=== PATIENT | female | born 1960 | race Caucasian/White ===

== ENCOUNTER → 2018-08-22 11:48 | Outpatient (CLI) | payer MEDICARE, SELFPAY ==
[2018-08-22 13:19] LABS: Alanine Aminotransferase 17 U/L (12-78); Albumin Level 3.2 gm/dL (3.4-5.0); Albumin/Globulin Ratio 0.8 (1.1-1.8); Alkaline Phosphatase 77 U/L (46-116); Anion Gap 11.5 mEq/L (5-15); Aspartate Amino Transferase 12 U/L (15-37); Bilirubin,Total 0.5 mg/dL (0.2-1.0); Blood Urea Nitrogen 6 mg/dL (7-18); Calcium 8.6 mg/dL (8.5-10.1); Carbon Dioxide 28 mmol/L (21.0-32.0); Chloride 105 mmol/L (98-107); Chol/HDL Ratio 8.5 (1-3.5); Cholesterol 247 mg/dL (140-200); Creatinine,Serum 0.98 mg/dL (0.55-1.02); Estimated Glomerular Filt Rate 58 ml/min (>60); Free T4 (Free Thyroxine) 1.25 ng/dl (0.76-1.46); GFR (African American) 71 ML/MIN (>60); Globulin 3.9 gm/dl (1.3-3.2); Glucose 175 mg/dL (74-106); HDL Cholesterol 29 mg/dL (29-89); LDL Cholesterol 182 mg/dL (0-130); Potassium 3.5 mmoL/L (3.5-5.1); Sodium 141 mmol/L (136-145); Thyroid Stimulating Hormone 1.17 uIU/ml (0.358-3.740); Total Protein,Serum 7.1 gm/dL (6.4-8.2); Triglycerides 179 mg/dL (30-200); VLDL Cholesterol 36 mg/dL (0-40)
[2018-08-24 21:48] LABS: Microalbumin, Urine 6.6 ug/mL (Not Estab.)
== END ==
PROVIDERS: Visit Provider Family Medicine
DX: E11.9 Type 2 diabetes mellitus without complications (principal); E03.9 Hypothyroidism, unspecified
CPT/HCPCS: 36415; 80053; 80061; 82043; 83036; 84439; 84443

== ENCOUNTER → 2018-08-27 08:57 | Outpatient (CLI) | payer MEDICARE, SELFPAY ==
--- NOTE | 2018-08-27 09:04 | XR_ITS ---
XR chest 2V HISTORY: ITS.REASON: COUGH ORDERING PHYSICIAN: Amaya Rodriguez PATIENT AGE: 57 years COMPARISON: None FINDINGS: The cardiomediastinal silhouette and pulmonary vascularity are within normal limits. [The lungs are clear without infiltrates, suspicious nodules, or pleural effusions]. [ ] [No acute bony abnormalities]. IMPRESSION: [Negative chest, no acute finding]
== END ==
PROVIDERS: PCP Nurse Practitioner; Visit Provider Nurse Practitioner
DX: R05 Cough (principal)
CPT/HCPCS: 71046

== ENCOUNTER → 2018-12-02 14:21 | Outpatient (CLI) | payer MEDICARE, SELFPAY ==
--- NOTE | 2018-12-02 14:23 | MM_ITS ---
MM Dig screening mamm BI w/CAD CAD Screening COMPARISON: Digital mammograms with CAD 04/18/2016 and 12/02/2015 INDICATION: There is a history of breast cancer patient's mother and maternal grandmother. TECHNIQUE: Standard CC and MLO images were obtained. R2 CAD reviewed. FINDINGS: Scattered fiber glandular densities are seen throughout both breasts and the findings are bilateral and symmetrical. There is no suspicious lesion and there are no suspicious microcalcifications. There are small nodes in both axilla. There are tiny benign-appearing microcalcifications in each breast. IMPRESSION: Fibrofatty parenchyma with no suspicious lesion seen BI-RADS Category: 2 Benign Finding(s) RECOMMENDED FOLLOW-UP: 1YR - 1 YEAR FOLLOW-UP (A letter has been sent to the patient regarding results of the study.)
== END ==
PROVIDERS: PCP Family Medicine; Visit Provider Family Medicine
DX: Z12.31 Encounter for screening mammogram for malignant neoplasm of breast (principal)
CPT/HCPCS: 77067

== ENCOUNTER → 2019-11-22 10:48 | Outpatient (CLI) | payer MEDICARE, SELFPAY ==
--- NOTE | 2019-11-22 10:57 | XR_ITS ---
PROCEDURE: XR LUMBAR SPINE MIN 4V CLINICAL INDICATION: SCIATICA OF RIGHT SIDE COMPARISON: No exams were available for comparison FINDINGS: There is no acute fracture or dislocation. There is degenerative disc disease at T11-12, L3-4, and to greatest extent at L1-2. No destructive lesion is apparent. Incidental note is made of atherosclerotic calcifications in the abdominal aorta. IMPRESSION: Degenerative disc disease as described. No acute findings. Dictated by: Chong Mujica 11/22/2019 12:00 Electronically signed by Chong Mujica in [facility] 11/22/2019 12:00
== END ==
PROVIDERS: PCP Family Medicine; Visit Provider Family Medicine
DX: M54.31 Sciatica, right side (principal)
CPT/HCPCS: 72110

== ENCOUNTER → 2019-12-02 09:04 | Outpatient (CLI) | payer MEDICARE, SELFPAY ==
--- NOTE | 2019-12-02 | CA_ITS ---
APPROVED REPORT Right Lower Extremity Venous Study for DVT. 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 She states this pain has been ongoing for 3 weeks or more. She describes it as a deep pain with throbbing and tingling. Vein Imaging CFV (R): compressive, spontaneous, phasic, augmentation FEM (R): compressive, spontaneous, phasic, augmentation POP (R): compressive, spontaneous, phasic, augmentation PTV (R): Compressible GSV (R): compressive, spontaneous, phasic, augmentation SSV (R): Compressible Peroneals (R):Compressible GAS (R): Compressible Findings No evidence of DVT or superficial thrombophlebitis in the veins scanned of the right lower extremity. Conclusion No evidence of DVT or superficial thrombophlebitis in the veins scanned of the right lower extremity. Electronically signed by : Melchor Denney MD 12/02/2019 20:18:47
== END ==
PROVIDERS: PCP Family Medicine; Visit Provider Family Medicine
DX: M79.604 Pain in right leg (principal)
CPT/HCPCS: 93971

== ENCOUNTER → 2021-02-11 09:46 | Outpatient (CLI) | payer MEDICARE, SELFPAY ==
--- NOTE | 2021-02-11 09:48 | MM_ITS ---
PROCEDURE INFORMATION: Exam: MG Screening 3D Mammography Exam date and time: 02/11/2021 9:48 AM Age: 60 years old Clinical indication: Encounter for screening mammogram for malignant neoplasm of breast TECHNIQUE: Imaging protocol: Screening tomosynthesis and 2D mammography including computer-aided detection (CAD) when performed. COMPARISON: 1. MG SCBI MM Dig screening mamm BI w/CAD 12/02/2018 2:39 PM 2. MG DMSB DIG MAMM-SCREEN [facility] 04/18/2016 8:26 AM FINDINGS: MAMMOGRAPHY: Breast composition: The breast tissue is composed of scattered areas of fibroglandular density. Mass: None. Architectural distortion: None. Calcifications: No suspicious calcifications. Asymmetric density: None. Skin thickening: None. Axillary adenopathy: None. IMPRESSION: No mammographic evidence of malignancy. Annual screening is recommended unless otherwise clinically indicated. ASSESSMENT: BI-RADS Category 1: Negative
== END ==
PROVIDERS: PCP Family Medicine; Visit Provider Family Medicine
DX: Z12.31 Encounter for screening mammogram for malignant neoplasm of breast (principal)
CPT/HCPCS: 77063; 77067

== ENCOUNTER 2021-02-19 10:45 | Emergency (ER) | payer MEDICARE, SELFPAY ==
[2021-02-19 10:57] VITALS: BP 169/88; PULSE 84; RESP 16; TEMP 36.6; O2SAT 100; BMI 28.3
--- NOTE | 2021-02-19 11:09 | CT_ITS ---
PROCEDURE INFORMATION: Exam: CT Lumbar Spine Without Contrast Exam date and time: 02/19/2021 11:09 AM Age: 60 years old Clinical indication: Low back pain; Additional info: Left sided low back pain that shoots down left leg TECHNIQUE: Imaging protocol: Computed tomography images of the lumbar spine without contrast. Radiation optimization: All CT scans at this facility use at least one of these dose optimization techniques: automated exposure control; mA and/or kV adjustment per patient size (includes targeted exams where dose is matched to clinical indication); or iterative reconstruction. COMPARISON: CR XR LUMBAR SPINE MIN 4V 11/22/2019 11:01 AM FINDINGS: Vertebrae: No acute lumbar spine fracture or traumatic malalignment. Discs/Spinal canal/Neural foramina: Moderate degenerative disc disease at L1-L2 with otherwise mild multilevel degenerative change. There is likely mild spinal canal narrowing at L3-L4 and likely moderate spinal canal narrowing at L4-L5. A large left foraminal zone disc protrusion at L3-L4 result in severe neural foraminal narrowing. Gallbladder and bile ducts: Partially imaged cholecystectomy changes. Exophytic simple left renal cyst. Vasculature: Mild atherosclerosis. Soft tissues: Unremarkable. IMPRESSION: Multilevel lumbar spine degenerative change including likely severe neural foraminal narrowing on the left at L3-L4 and moderate spinal canal narrowing at L4-L5. COMMENTS: Consistent with the [employer]'s Incidental Findings Committee white paper (J Am Jeet Radiol 2018): Any incidental renal lesion less than 1 cm or classified as too small to characterize, or any incidental cystic renal lesion characterized as simple-appearing, is likely benign. No follow-up imaging is recommended for these lesions per consensus recommendations based on imaging criteria.
--- NOTE | 2021-02-19 11:10 | HMH.EDGENADL ---
ED Disposition Clinical Impression: Radicular pain of left upper extremity Disposition: Home, Self-Care Condition on Discharge: Good Additional Instructions: . Use medication as directed Follow-up with primary care physician. You are scheduled for ultrasound for left lower extremity. Sent to the emergency room for any new symptoms. Prescriptions: Etodolac [Lodine 400mg Tab] 400 mg PO TID 10 Days #30 tab Transmission Status: Pending to [facility] Tizanidine HCl [Zanaflex] 2 mg PO BID 10 Days #20 cap Transmission Status: Pending to [facility] Referrals: Lorenzo Sunshine MD [Primary Care Provider] - - Critical Care Critical Care Time: No Attestation: On , the high probability of a clinically significant, sudden or life threatening deterioration of the following system(s) required my full and direct attention, intervention and personal management. The time I documented below is in addition to time spent performing reported procedures but includes the following listed in this critical care notation. Medical Decision Making - Medical Records MR Comment: Patient has radiological finding on the CT scan consistent with spinal stenosis especially at L3-L4 with radicular pain. Any clinical symptoms of DVT. Homans signs is negative. Pain is intermittent's been going for 1 year more consistent with neurogenic radicular pain. - Freedom Inquiry Pt receiving controlled substance: No Freedom was queried for this patient: No Vital Signs: 02/19/21 10:57 Temperature 97.8 F Temperature Source Oral Pulse Rate [Radial] 84 Respiratory Rate 16 Blood Pressure [Right Arm] 169/88 H Blood Pressure Mean [Right Arm] 115 02 Sat by Pulse Oximetry 100 Oxygen Delivery Method Room Air - Lab Data Lab Results 02/19/21 11:19: WBC 6.6, RBC 4.08 L, Hgb 12.2, Hct 34.9 L, MCV 85.5, MCH 30.0, MCHC 35.1, RDW 14.3, Plt Count 223, MPV 9.2, Neut % (Auto) 62.3, Lymph % (Auto) 29.5, [place] % (Auto) 5.8, Eos % (Auto) 1.9, Baso % (Auto) 0.5, Neut # (Auto) 4.1, Lymph # (Auto) 1.9, [place] # (Auto) 0.4, Eos # (Auto) 0.1, Baso # (Auto) 0.0 02/19/21 11:19: Sodium 143, Potassium 4.0, Chloride 111 H, Carbon Dioxide 23, Anion Gap 13.0, BUN 9, Creatinine 0.80, Estimated Creat Clear 91, Estimated GFR 73, Est GFR ( Amer) 89, Glucose 146 H, Calcium 9.6, Total Bilirubin 0.5, AST 31, ALT 14, Alkaline Phosphatase 55, Total Protein 7.5, Albumin 4.1, Globulin 3.4 H, Albumin/Globulin Ratio 1.2 02/19/21 11:19: D-Dimer 0.90 H Result diagrams: 02/19/21 11:19 02/19/21 11:19 General Adult HPI - General Chief complaint: PAIN Stated complaint: left leg pain, no accident Time Seen by Provider: 02/19/21 11:11 Mode of Arrival: Ambulatory Limitations: No Limitations Description of Symptoms (Recalled from ER Triage Doc. by RN): Pt complains of left leg pain starting at thigh to her ankle. Pt states it feels like its knotted in places. Denies any warmth to the touch. - History of Present Illness HPI narrative: Years old female walked to the emergency room complaining of left leg pain that has been going on and off for the past year which she did not seek any medical attention. She said in the past 2 days the pain got worse and affects her walking. She is worried about blood clots so she came to the emergency room. There is no swelling in the left lower extremity. The pain radiates from the pelvic area down to the left thigh front side to the knee. No change in muscle strength or sensation. She is more comfortable when she is lying flat. She never had any history of blood clots. Onset (ago): year(s) Location: lower extremity Severity: moderate Severity scale (1-10): 3 Quality: sharp Consistency: intermittent Relieving factors: immobilization Exacerbating factors: movement - Related Data Home Medications Medication Instructions Recorded Confirmed levothyroxine 88 mcg tablet 88 mcg PO DAILY 11/29/18 02/07/21 metformin 1,000 mg tablet 1
[2021-02-19 11:25] LABS: Basophils % 0.5 % (0.1-2.0); Eosinophils # 0.1 K/mm3 (0.0-0.4); Eosinophils % 1.9 % (0.1-12.0); Hematocrit 34.9 % (37.0-47.0); Hemoglobin 12.2 g/dL (12.2-16.2); Lymphocytes # 1.9 K/mm3 (0.7-4.5); Lymphocytes % 29.5 % (10-50); Mean Corpuscular HGB Conc 35.1 g/dL (31.8-35.4); Mean Corpuscular Volume 85.5 fl (81-99); Mean Platelet Volume 9.2 fl (7.4-10.4); Monocytes # 0.4 K/mm3 (0.1-1.0); Monocytes % 5.8 % (1.7-9.3); Neutrophils # 4.1 K/mm3 (1.8-7.8); Neutrophils % 62.3 % (37.0-80.0); Platelet Count 223 K/mm3 (142-424); Red Blood Count 4.08 M/mm3 (4.20-5.40); Red Cell Distribution Width 14.3 % (11.5-17.5); White Blood Count 6.6 K/mm3 (4.8-10.8)
[2021-02-19 11:29] LABS: Chloride 111 mmol/L (98-107)
[2021-02-19 11:30] LABS: Sodium 143 mmol/L (136-145)
[2021-02-19 11:32] LABS: Alanine Aminotransferase 14 U/L (12-78); Alkaline Phosphatase 55 U/L (38-126); Aspartate Amino Transferase 31 U/L (14-36); Bilirubin,Total 0.5 mg/dl (0.2-1.3); Blood Urea Nitrogen 9 mg/dl (7-17); Creatinine Clearance Estimated 91 mL/min (50-200); Estimated Glomerular Filt Rate 73 ml/min (>60); GFR (African American) 89 ML/MIN (>60)
[2021-02-19 11:33] LABS: Albumin Level 4.1 g/dl (3.5-5.0); Albumin/Globulin Ratio 1.2 (1.1-1.8); Calcium 9.6 mg/dl (8.4-10.2); Carbon Dioxide 23 mmol/L (22.0-30.0); Globulin 3.4 g/dL (1.3-3.2); Glucose 146 mg/dl (74-100); Total Protein,Serum 7.5 g/dl (6.3-8.2)
[2021-02-19 12:39] VITALS: BP 169/88; PULSE 84; RESP 16; TEMP 36.6; O2SAT 99
== END 2021-02-19 12:43 | disposition home or self-care (01) ==
PROVIDERS: Emergency Provider Internal Medicine; PCP Family Medicine
DX: M79.2 Neuralgia and neuritis, unspecified (principal); E11.9 Type 2 diabetes mellitus without complications
CPT/HCPCS: 72131; 80053; 85025; 85378; 99282

== ENCOUNTER → 2021-02-21 14:21 | Outpatient (CLI) | payer MEDICARE, SELFPAY ==
--- NOTE | 2021-02-21 | CA_ITS ---
APPROVED REPORT Left Lower Extremity Venous Study for DVT. 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 Patient denies trauma states she has had left leg pain for several years but the past week the pain has worsened. Vein Imaging CFV (L): compressive, spontaneous, phasic, augmentation FEM (L): compressive, spontaneous, phasic, augmentation, POP (L): compressive, spontaneous, phasic, augmentation PTV (L): Compressible GSV (L): compressive, spontaneous, phasic, augmentation Peroneals (L):Compressible GAS (L): Compressible Findings No evidence of DVT or superficial thrombophlebitis in the veins scanned of the left lower extremity. Conclusion No evidence of DVT or superficial thrombophlebitis in the veins scanned of the left lower extremity. Electronically signed by : Melchor Denney MD 02/21/2021 15:46:59
== END ==
PROVIDERS: PCP Family Medicine; Visit Provider Internal Medicine
DX: M79.662 Pain in left lower leg (principal)
CPT/HCPCS: 93971

== ENCOUNTER 2021-02-27 13:53 | Emergency (ER) | payer MEDICARE, SELFPAY ==
[2021-02-27 14:45] VITALS: BP 151/82; PULSE 85; RESP 19; TEMP 36.9; O2SAT 99; BMI 28.3
--- NOTE | 2021-02-27 15:30 | HMH.EDUTC ---
[facility] [place] Impression: Radicular pain of left lower extremity Disposition: Home, Self-Care Condition on Discharge: Good Instructions: DI for Sciatica, Neuropathic Pain Additional Instructions: *Continue your Etodolac as needed for pain/inflammation *Not additional anti-inflammatory like motrin, aleve, advil with the above amount of ibuprofen. You can still take Tylenol every 4 hours as needed if you need something else for pain *Ice 20 minutes every 2 hours for the first 48 hours after the initial injury followed by moist heat every 20 minutes 3-4 times a day to affected area *Muscle relaxer Tizanidine as prescribed as needed for muscle spasms but remember, it WILL cause drowsiness You cannot take it and drive, operate machinery or care for small children. *Keep this area active, no movement leads to more stiffness, However take it easy and avoid heavy lifting pushing or pulling *Follow up with you family doctor if no improvement for further treatment Follow up with your Family Doctor if no improvement or any worsening of symptoms Straight to ER if any life threatening symptoms Referrals: Lorenzo Sunshine MD [Primary Care Provider] - As needed Time of Disposition: 15:46 Medical Decision Making - Freedom Inquiry Pt receiving controlled substance: No Freedom was queried for this patient: No Vital Signs: 02/27/21 14:45 02/27/21 15:57 Temperature 98.4 F 98.4 F Temperature Source Oral Pulse Rate 85 Pulse Rate [Right Brachial] 85 Respiratory Rate 19 19 Blood Pressure 151/82 H Blood Pressure [Right Arm] 151/82 H Blood Pressure Mean [Right Arm] 105 Blood Pressure Source [Right Arm] Automatic Cuff Blood Pressure Position [Right Arm] Sitting 02 Sat by Pulse Oximetry 99 Oxygen Delivery Method Room Air Orders (Tests/Meds): ED MEDICATIONS Discontinued Medications Generic Name Dose Route Start Last Admin Trade Name Freq PRN Reason Stop Dose Admin Methylprednisolone Sodium Succinate 125 mg 02/27/21 15:38 02/27/21 15:55 Methylprednisolone Sod Succ 125mg Vial IM 02/27/21 15:39 125 mg ONCE ONE Administration Medical Decision Narrative: Discussed with patient that she needed to take the medication as prescribed will give injection of SoluMedrol to see if that would help with the nerve pain and take medication as prescribed by ED physician last week and follow up with PCP if no improvement and patient agreed [facility] [place] - General Stated complaint: pinched nerve seen last sat. Time Seen by Provider: 02/27/21 15:30 Mode of Arrival: Ambulatory Source of Information: Patient Limitations: No Limitations Description of Symptoms (Recalled from Triage Doc. by RN): PATIENT C/O PINCHED NERVE IN LEFT LEG. STATES SHE WAS SEEN IN ER LAST SUNDAY. PAIN IS NOT BETTER HEENT Symptoms (Recalled from RN notes): No Resp Symptoms (Recalled from RN notes): No Skin Symptoms (Recalled from RN notes): No MS Symptoms (Recalled from RN notes): Yes Functional Status (Recalled from RN notes): WNL - History of Present Illness Provider Complaint: Patient states that she has a history of low back pain, sciatica and nerve problems in her back that at times she have nerve pain go down her legs State that she was seen in the ED last week for this same pain and was given Etodolac and Tizanidine but didnt think they was helping so she didnt take them States that she is here today to see if there is something else she can get to help her Denies loss of control of bowel or bladder - Related Data Home Medications Medication Instructions Recorded Confirmed levothyroxine 88 mcg tablet 88 mcg PO DAILY 11/29/18 02/27/21 metformin 1,000 mg tablet 500 mg PO BID 11/29/18 02/27/21 lisinopril 10 mg tablet 10 mg PO DAILY 02/07/21 02/27/21 Etodolac [Lodine 400mg Tab] 400 mg PO TID 02/27/21 02/27/21 Tizanidine HCl [Zanaflex] 2 mg PO BID 02/27/21 02/27/21 Allergies Allergy/AdvReac Type Severity Reaction Status Date / Ti
[2021-02-27 15:57] VITALS: BP 151/82; PULSE 85; RESP 19; TEMP 36.9; O2SAT 99
== END 2021-02-27 16:11 | disposition home or self-care (01) ==
PROVIDERS: Emergency Provider Nurse Practitioner; PCP Family Medicine
DX: M54.10 Radiculopathy, site unspecified (principal); M79.2 Neuralgia and neuritis, unspecified; I10 Essential (primary) hypertension; E11.9 Type 2 diabetes mellitus without complications; E03.9 Hypothyroidism, unspecified; Z79.899 Other long term (current) drug therapy
CPT/HCPCS: G0463; 96372; 99202

== ENCOUNTER → 2021-03-08 13:33 | Outpatient (CLI) | payer MEDICARE, SELFPAY ==
--- NOTE | 2021-03-08 13:36 | MR_ITS ---
PROCEDURE: MR LUMBAR SPINE WO CON CLINICAL INDICATION: ACUTE LEFT SIDED LOW BACK PAIN COMPARISON: No exams were available for comparison TECHNIQUE: Multiplanar, multisequence MRI lumbar spine performed without contrast. FINDINGS: Vertebral body heights are maintained.There is no evidence of bone marrow edema or infiltrative process.The conus medullaris terminates at the T12-L1 vertebral body level. Focal T2 hyperintense and T1 hypointense lesions are noted in the left kidney measuring up to 2.2 centimeters, likely represent cysts. Further details by level follow below T12-L1: No canal stenosis or neural foraminal narrowing. L1-2: Broad-based disc bulge, bilateral facet joint and ligamentum flavum hypertrophy causes mild canal and mild to moderate bilateral foraminal narrowing. L2-3: Small disc bulge, bilateral facet joint and ligamentum flavum hypertrophy causes mild to moderate right canal narrowing. No significant L3-4: Foraminal narrowing. Broad-based disc bulge, bilateral facet joint and ligamentum flavum hypertrophy causes moderate to severe left and mild to moderate right foraminal narrowing. Moderate canal narrowing is noted with crowding of the nerve roots within the thecal sac at this level. L4-5: Broad-based disc bulge, bilateral facet joint and ligamentum flavum hypertrophy with annular tear is noted causes moderate to severe canal narrowing with crowding of the nerve roots within the thecal sac. There is severe bilateral foraminal narrowing. L5-S1: Small disc bulge without significant canal or foraminal narrowing. IMPRESSION: Multilevel degenerative changes, worse at L3-4 and L4-5 levels. Moderate to severe canal and foraminal narrowing at L4-5 level. Dictated by: Lisa Garcia 03/08/2021 15:29 Lisa Garcia in [facility] 03/08/2021 15:29
== END ==
PROVIDERS: PCP Family Medicine; Visit Provider Family Medicine
DX: M54.42 Lumbago with sciatica, left side (principal); M48.061 Spinal stenosis, lumbar region without neurogenic claudication
CPT/HCPCS: 72148; 76376

== ENCOUNTER → 2021-03-14 07:37 | Outpatient (CLI) | payer MEDICARE, SELFPAY | PROVIDERS: Visit Provider Surgery | DX: Z01.812 Encounter for preprocedural laboratory examination (principal); Z20.822 Contact with and (suspected) exposure to COVID-19; Z12.11 Encounter for screening for malignant neoplasm of colon; Z80.0 Family history of malignant neoplasm of digestive organs | CPT/HCPCS: U0003 ==

== ENCOUNTER 2021-03-16 06:20 | Day surgery (SDC) | payer MEDICARE, SELFPAY ==
[2021-03-10 11:58] VITALS: BMI 27.4
[2021-03-16 06:38] VITALS: BP 149/71; PULSE 61; RESP 18; TEMP 36.6; O2SAT 98
[2021-03-16 07:10] LABS: POC Glucose,Bedside 88 (70-110)
[2021-03-16 07:22] VITALS: O2SAT 97
--- NOTE | 2021-03-16 07:35 | P.PN_ITS ---
[facility] Anesthesia Checklist - Patient Identification Patient Identification: Arm Band - Structural Data Admitted From: Home Planned Operative Procedure/s: colonoscopy Consent for Planned Operative Procedure(s) Verified: Yes Verified Documents: Surgical Consent, History and Physical - NPO Status Verified Time NPO: 00:00 - Additional verifications Anesthesia Reactions: No - Airway Assessment C-Spine Mobility Assessed: Yes (mp2) TMJ Mobility Assessed: Yes Dentition: Good Dentition - Neurological Assessment Level of Consciousness: Awake, Alert - Anesthesia Plan Anesthesia Risk discussed: Yes Anesthesia Plan: Verified ASA Class: II Anesthesia Type: MAC [facility] History I have reviewed the patient's past medical history: Yes Medical History: Reports:: Diabetes Mellitus Type 2, Hypertension Denies:: Cancer, Diabetes Mellitus Type 1, Internal Pacemaker, Lung Disease, MRSA, Seizures *Have you ever received a pneumonia vaccine?: Yes *Have you received a flu vaccine this season?: No Other Medical History: Reports: Thyroid Disease Anesthesia experience/problems:: nac Laterality Cases: Right: Arthroscopy Shoulder, Carpal Tunnel Release Other Surgeries: Yes: Cholecystectomy, Colonoscopy, , Tubal Ligation, Other. No: Pacemaker Amputation: No Fractures: No - *Social History Last grade of school completed: High school graduate Smoking Status: Never smoker Alcohol Intake: never Substance Use Type: denies use *Occupational Status:: retired Housing: house Household Members: spouse *Travel in the last 8 weeks: None Family Hx:: Cancer, Diabetes
[2021-03-16 07:47] VITALS: BP 104/62; PULSE 60; RESP 18; TEMP 36.1; O2SAT 93
--- NOTE | 2021-03-16 07:47 | HMH.SCOPE ---
- Procedure: Date: 03/16/21 Patient Date of :: 1960 Procedure Performed:: Total colonoscopy to terminal ileum with biopsy Indications:: Patient is a 60-year-old female with a very strong family history of colon cancer. I had performed colonoscopy on her 2 years ago. Biopsy was performed of a lesion near the appendix but this was benign. Given the very strong family history and due to the fact that this was her initial screening colonoscopy I recommended follow-up colonoscopy within 3 years. Patient is concerned however about waiting much longer. Performing Provider:: Tom Mesa MD Referring Provider:: Wilber Sunshine MD Sedation:: MAC sedation Procedure:: Patient was taken to endoscopy procedure room. She was positioned in lateral decubitus position. Adequate intravenous sedation was achieved. Digital examination was performed which was unremarkable. Variable stiffness Olympus colonoscope was inserted via the anus. It was advanced to the cecum. Ileocecal valve and appendiceal orifice were clearly identified. Colonic visualization was good throughout. Colonoscope was advanced a short distance into the terminal ileum which appeared grossly normal. Colonoscope was withdrawn through the colon with careful surveillance. There were a few diverticuli. In the sigmoid colon there was a subtle possible polyp which was removed with cold biopsy forceps. This is likely hyperplastic or lymphoid aggregate. Within the rectum retroflexion was performed which revealed no evidence of any pathologic internal hemorrhoids. Colonoscope was withdrawn. Findings:: Rare diverticulosis Subtle possible polyp in the sigmoid colon, likely lymphoid aggregate or hyperplastic polyp Recommendations:: Given strong family history repeat colonoscopy 3 to 5 years pending pathology Complications:: None immediately apparent Estimated blood obtained (mL): 1
--- NOTE | 2021-03-16 07:50 | P.HP_ITS ---
HPI HPI: Patient is a 60-year-old female with a very strong family history of colon cancer. I had performed colonoscopy on her 2 years ago. Biopsy was performed of a lesion near the appendix but this was benign. Given the very strong family history and due to the fact that this was her initial screening colonoscopy I recommended follow-up colonoscopy within 3 years. Patient is concerned however about waiting much longer. [facility] History I have reviewed the patient's past medical history: Yes Medical History: Reports:: Diabetes Mellitus Type 2, Hypertension Denies:: Cancer, Diabetes Mellitus Type 1, Internal Pacemaker, Lung Disease, MRSA, Seizures *Have you ever received a pneumonia vaccine?: Yes *Have you received a flu vaccine this season?: No Other Medical History: Reports: Thyroid Disease Anesthesia experience/problems:: nac Laterality Cases: Right: Arthroscopy Shoulder, Carpal Tunnel Release Other Surgeries: Yes: Cholecystectomy, Colonoscopy, , Tubal Ligation, Other. No: Pacemaker Amputation: No Fractures: No - *Social History Last grade of school completed: High school graduate Smoking Status: Never smoker Alcohol Intake: never Substance Use Type: denies use *Occupational Status:: retired Housing: house Household Members: spouse *Travel in the last 8 weeks: None Family Hx:: Cancer, Diabetes Review of Systems - Review of Systems Review of systems:: pertinent systems reviewed and negative unless documented below Meds Home Medications Medication Instructions Recorded Confirmed Type levothyroxine 88 mcg tablet 88 mcg PO DAILY 11/29/18 03/10/21 History metformin 1,000 mg tablet 500 mg PO BID 11/29/18 03/10/21 History lisinopril 10 mg tablet 10 mg PO DAILY 02/07/21 03/10/21 History Gabapentin 300 mg PO BID 03/10/21 03/10/21 History Tramadol HCl [Tramadol 50mg 50 mg PO Q6H PRN 03/10/21 03/10/21 History Tab] Allergies Allergy/AdvReac Type Severity Reaction Status Date / Time codeine Allergy Verified 02/27/21 15:11 Exam Vital signs and Labs for Last 24 Hours: Temp Pulse Resp BP Pulse Ox 97.9 F 61 18 149/71 H 98 03/16/21 06:38 03/16/21 06:38 03/16/21 06:38 03/16/21 06:38 03/16/21 06:38 Laboratory Results - last 24 hr 03/16/21 06:43: POC Glucose 88 - Constitutional no acute distress - *Routine HEENT Exam Head: Present: normocephalic Eye: Present: EOMI, PERRL ENT: Present: mucous membranes moist - *Routine Neck Exam Present: supple. Absent: lymphadenopathy - *Routine Respiratory Exam Present: CTA bilaterally - *Routine Cardiovascular Exam Present: RRR - *Routine Abdominal Exam Present: soft, normoactive bowel sounds. Absent: tenderness - *Routine Rectal Exam Rectal:: deferred - *Routine Genitalia Exam Genitalia:: deferred - *Routine Extremities Exam Absent: cyanosis, clubbing, edema - *Routine Skin Exam Present: warm. Absent: rash - *Routine Neurological Exam Present: alert, oriented X3 Results - Results Lab Results Last 24 Hours:: Laboratory Results - last 24 hr 03/16/21 06:43: POC Glucose 88 Assessment and Plan - Assessment and plan all Dx Assessment and Plan for all prob
[2021-03-16 07:55] VITALS: BP 116/68; PULSE 60; RESP 18; O2SAT 100
[2021-03-16 08:08] VITALS: BP 132/65; PULSE 58; RESP 18; O2SAT 100
== END 2021-03-16 08:10 | disposition home or self-care (01) ==
LOC: OUTP 06:22
PROVIDERS: PCP Family Medicine; Visit Provider Surgery
PROC: 0DJD8ZZ Inspection of Lower Intestinal Tract, Via Natural or Artificial Opening Endoscopic (ICD-10-PCS; principal; 2021-03-16 07:30)
DX: Z80.0 Family history of malignant neoplasm of digestive organs (principal); Z12.11 Encounter for screening for malignant neoplasm of colon; K57.30 Diverticulosis of large intestine without perforation or abscess without bleeding; K63.5 Polyp of colon; E11.9 Type 2 diabetes mellitus without complications; I10 Essential (primary) hypertension; E07.9 Disorder of thyroid, unspecified; Z87.39 Personal history of other diseases of the musculoskeletal system and connective tissue; Z83.3 Family history of diabetes mellitus; Z79.84 Long term (current) use of oral hypoglycemic drugs; Z79.899 Other long term (current) drug therapy
CPT/HCPCS: 45380; 82962; 88305

== ENCOUNTER → 2021-03-21 13:48 | Outpatient (POV) | payer MEDICARE, SELFPAY ==
[2021-03-21 14:13] VITALS: BP 170/79; PULSE 82; RESP 18; O2SAT 100; BMI 27.8
--- NOTE | 2021-03-21 14:43 | HMH.PMCON ---
Assessment and Plan (1) Degenerative disc disease, lumbar Status: Acute Category: Medical Code(s): M51.36 - Other intervertebral disc degeneration, lumbar region (2) Lumbar radiculopathy Status: Acute Category: Medical Code(s): M54.16 - Radiculopathy, lumbar region (3) Ligamentum flavum hypertrophy Status: Acute Category: Medical Code(s): M24.28 - Disorder of ligament, vertebrae - Assessment and plan all Dx Assessment and Plan for all problems:: MRI of the lumbar spine reveals degenerative disc disease, worse at L5 3?L4 and L4-L5. Moderate to severe canal and foraminal narrowing at L4-L5. There is ligamentum flavum hypertrophy noted at L2-L3 and L3-L4 as well as bilateral facet hypertrophy. We will schedule the patient for lumbar epidurogram at L4-L5 for further evaluation. The procedure, risk, benefits were all discussed with the patient today. She would like to proceed with the injection. We did also briefly discuss minimally invasive lumbar decompression. Assuming she would be an appropriate candidate she is welcome to contact the clinic prior to her next appointment date if she has any questions or concerns. Dr. Mary has reviewed this note and agrees with this plan of care. This note was dictated using voice recognition software and make contain errors or omissions. HPI - Data of Consult Patient: new to practice Consult date: 03/28/21 Requesting Physician: Arlene Fuentes APRN Primary Care Provider: Duane Cruz MD - Consult Narrative History of present illness: Ms. George is a 60 year old female who presents today as a new patient. She is a referral from Dr. Cruz for increased pain in the low back. She is rating her pain today a 7 out of 10. She is complaining of increasing low back pain with radiating symptoms into bilateral lower extremities. She describes the pain in the back as a constant aching sensation. She does experience numbness and weakness in her left leg and a heaviness in the right. She also experiences radiating pains into the left buttock and thigh area. The pain is made worse with prolonged standing and walking. Pain is improved with rest. She does get some improvement in symptoms by leaning forward. She has tried conservative therapies in the past such as at home stretches and exercises for greater than 6 weeks, she has also tried oral medications without any lasting relief in symptoms. She has been prescribed muscle relaxers that did not help relieve her pain. Patient is currently prescribed tramadol 50 mg as well as gabapentin 300 mg by her primary care provider. Her Freedom number is [phone] she had an active morphine equivalent of 30. We will obtain admission drug screen today. CC: Arlene Fuentes APRN [facility] History I have reviewed the patient's past medical history: Yes Medical History: Reports:: Diabetes Mellitus Type 2, Hypertension Denies:: Cancer, Diabetes Mellitus Type 1, Internal Pacemaker, Lung Disease, MRSA, Seizures *Have you ever received a pneumonia vaccine?: No *Have you received a flu vaccine this season?: No Other Medical History: Reports: Thyroid Disease Laterality Cases: Right: Arthroscopy Shoulder, Carpal Tunnel Release Other Surgeries: Yes: Cholecystectomy, Colonoscopy, , Tubal Ligation, Other. No: Pacemaker Amputation: No Fractures: No - *Social History Smoking Status: Never smoker Alcohol Intake: never Substance Use Type: denies use *Occupational Status:: unemployed Housing: house Household Members: spouse *Travel in the last 8 weeks: None Family Hx:: Cancer, Diabetes Review of Systems - Review of Systems Review of Systems General: No recent weight changes, no fever, no sleep disturbances Respiratory: No cough, no shortness of air, no recurring pulmonary infections Cardiovascular/peripheral vascular: No chest pain, no palpitations, no edema, no shortness of breath Gastrointestinal: No new onset incontin
== END ==
PROVIDERS: PCP Family Medicine; Visit Provider Family Medicine
DX: M51.16 Intervertebral disc disorders with radiculopathy, lumbar region (principal); M24.28 Disorder of ligament, vertebrae
CPT/HCPCS: 99202; G0463

== ENCOUNTER → 2021-08-27 10:38 | Outpatient (CLI) | payer MEDICARE, SELFPAY ==
[2021-08-27 15:37] LABS: Basophils # 0.1 K/mm3 (0-0.2); Basophils % 1.5 % (0.1-2.0); Eosinophils # 0.1 K/mm3 (0.0-0.4); Eosinophils % 1.7 % (0.1-12.0); Hematocrit 39.3 % (37.0-47.0); Hemoglobin 12.7 g/dL (12.2-16.2); Lymphocytes # 2.9 K/mm3 (0.7-4.5); Lymphocytes % 41.8 % (10-50); Mean Corpuscular HGB Conc 32.4 g/dL (31.8-35.4); Mean Corpuscular Hemoglobin 29.5 pg (27.0-31.2); Mean Corpuscular Volume 91.2 fl (81-99); Mean Platelet Volume 9.8 fl (7.4-10.4); Monocytes # 0.5 K/mm3 (0.1-1.0); Monocytes % 7.2 % (1.7-9.3); Neutrophils # 3.3 K/mm3 (1.8-7.8); Neutrophils % 47.9 % (37.0-80.0); Platelet Count 315 K/mm3 (142-424); Red Blood Count 4.31 M/mm3 (4.20-5.40); Red Cell Distribution Width 13.9 % (11.5-17.5); White Blood Count 6.9 K/mm3 (4.8-10.8)
[2021-08-27 16:46] LABS: Adenovirus,PCR Not Detected (NotDetected); Bordetella Pertussis Not Detected (NotDetected); Chlamydophila Pneumoniae, PCR Not Detected (NotDetected); Coronavirus 19, PCR Not Detected (NotDetected); Coronavirus 229E Not Detected (NotDetected); Coronavirus NL63 Not Detected (NotDetected); Coronavirus OC43 Not Detected (NotDetected); Coronovirus HKU1,PCR Not Detected (NotDetected); Human Metapneumovirus Not Detected (NotDetected); Influenza A, PCR Not Detected (NotDetected); Influenza AH1, 2009 Not Detected (NotDetected); Influenza AH1, PCR Not Detected (NotDetected); Influenza AH3,PCR Not Detected (NotDetected); Influenza B, PCR Not Detected (NotDetected); Mycoplasma Pneumoniae, PCR Not Detected (NotDetected); Parainfluenza 1, PCR Not Detected (NotDetected); Parainfluenza 2, PCR Not Detected (NotDetected); Parainfluenza 3, PCR Not Detected (NotDetected); Parainfluenza 4, PCR Not Detected (NotDetected); Rhinovirus/Enterovirus Not Detected (NotDetected)
[2021-08-27 18:19] LABS: Respiratory Syncytial Virus Detected (NotDetected)
== END ==
PROVIDERS: PCP Family Medicine; Visit Provider Family Medicine
DX: Z20.822 Contact with and (suspected) exposure to COVID-19 (principal); B97.4 Respiratory syncytial virus as the cause of diseases classified elsewhere
CPT/HCPCS: 85025; 87581; 87632; 87798; C9803; U0003; U0005

== ENCOUNTER → 2021-09-13 11:10 | Outpatient (CLI) | payer MEDICARE, SELFPAY ==
--- NOTE | 2021-09-13 11:21 | XR_ITS ---
FINAL REPORT TECHNIQUE: Chest PA & Lateral CLINICAL HISTORY: HEMOPTYSIS FINDINGS: 2 views of the chest were performed. The heart size is normal. The mediastinum is within normal limits. There is no acute cardiopulmonary process. There are no pleural effusions. There is no pneumothorax. The bony thorax appears intact. IMPRESSION: No acute cardiopulmonary process. Reviewed, Interpreted and Dictated by Bong Broussard MD Transcribed by Marti Portillo Authenticated by Bong Broussard MD on 09/13/2021 12:45:47 PM [facility]
[2021-09-13 12:31] LABS: Basophils # 0.1 K/mm3 (0-0.2); Basophils % 0.8 % (0.1-2.0); Eosinophils # 0.1 K/mm3 (0.0-0.4); Eosinophils % 1.6 % (0.1-12.0); Hematocrit 39.9 % (37.0-47.0); Hemoglobin 12.8 g/dL (12.2-16.2); Lymphocytes # 2.4 K/mm3 (0.7-4.5); Lymphocytes % 31.8 % (10-50); Mean Corpuscular HGB Conc 32.2 g/dL (31.8-35.4); Mean Corpuscular Hemoglobin 29.9 pg (27.0-31.2); Mean Corpuscular Volume 93.1 fl (81-99); Mean Platelet Volume 8.2 fl (7.4-10.4); Monocytes # 0.4 K/mm3 (0.1-1.0); Monocytes % 4.6 % (1.7-9.3); Neutrophils # 4.6 K/mm3 (1.8-7.8); Neutrophils % 61.2 % (37.0-80.0); Platelet Count 251 K/mm3 (142-424); Red Blood Count 4.28 M/mm3 (4.20-5.40); Red Cell Distribution Width 14.3 % (11.5-17.5); White Blood Count 7.6 K/mm3 (4.8-10.8)
[2021-09-13 12:39] LABS: Activated Partial Thrombo Time 29.1 seconds (22.8-30.6); INR 1.01 (0.9-1.1); Prothrombin Time 11.4 seconds (10.1-12.5)
[2021-09-13 13:02] LABS: Alanine Aminotransferase 26 U/L (12-78); Albumin Level 4.3 g/dl (3.5-5.0); Albumin/Globulin Ratio 1.3 (1.1-1.8); Alkaline Phosphatase 72 U/L (38-126); Anion Gap 10.8 mEq/L (5-15); Aspartate Amino Transferase 42 U/L (14-36); Bilirubin,Total 0.7 mg/dl (0.2-1.3); Blood Urea Nitrogen 11 mg/dl (7-17); Calcium 9.8 mg/dl (8.4-10.2); Carbon Dioxide 29 mmol/L (22.0-30.0); Chloride 105 mmol/L (98-107); Chol/HDL Ratio 8.1 (1-3.5); Cholesterol 323 mg/dl (140-200); Estimated Glomerular Filt Rate 64 ml/min (>60); GFR (African American) 77 ML/MIN (>60); Globulin 3.3 g/dL (1.3-3.2); Glucose 139 mg/dl (74-100); HDL Cholesterol 40 mg/dl (40-60); Magnesium 1.4 mg/dl (1.6-2.3); Phosphorous 4.5 mg/dl (2.5-4.5); Potassium 3.8 mmoL/L (3.5-5.1); Sodium 141 mmol/L (136-145); Total Protein,Serum 7.6 g/dl (6.3-8.2); Triglycerides 243 mg/dl (30-150); VLDL Cholesterol 49 mg/dL (0-40)
[2021-09-13 13:12] LABS: Direct LDL Cholesterol 244.16 mg/dL (100-129)
[2021-09-13 13:32] LABS: Thyroid Stimulating Hormone 0.23 uIU/mL (0.465-4.68)
[2021-09-13 14:11] LABS: Hemoglobin A1C 6.7 % (4.0-6.0)
== END ==
PROVIDERS: PCP Family Medicine; Visit Provider Family Medicine
DX: R00.2 Palpitations (principal); R04.2 Hemoptysis; I10 Essential (primary) hypertension; E11.9 Type 2 diabetes mellitus without complications; Z79.84 Long term (current) use of oral hypoglycemic drugs
CPT/HCPCS: 36415; 71046; 80053; 80061; 83036; 83735; 84100; 84443; 85025; 85610; 85730

== ENCOUNTER → 2021-09-29 09:38 | Outpatient (CLI) | payer MEDICARE, SELFPAY ==
--- NOTE | 2021-09-29 09:42 | CT_ITS ---
FINAL REPORT CLINICAL HISTORY: HEMOPTYSIS FINDINGS: Axial CT images of the chest were obtained with contrast. Coronal reformatted images were also obtained. This study was performed with techniques to keep radiation doses as low as reasonably achievable, (ALARA). Individualized dose reduction techniques using automated exposure control or adjustment of mA and/or KV according to the patient's size were employed. There is no evidence of mediastinal or hilar mass or adenopathy. No axillary mass or adenopathy is identified. On lung window images, there are calcified granulomas in the left lower lobe. No other pulmonary mass or pulmonary nodule is identified. There is mild atelectasis. No localized pulmonary inflammatory process is identified. Limited images of the upper abdomen reveal post cholecystectomy changes. There is a cystic mass in the posterior left kidney measuring 18 mm which favors a mildly complicated cyst. IMPRESSION: Calcified granulomas in the left lower lobe. Cystic left kidney mass favoring a mildly complicated cyst. Reviewed, Interpreted and Dictated by Tom Benítez III, MD Transcribed by Marti Portillo Authenticated by Tom Benítez III, MD on 09/29/2021 11:41:16 AM [facility]
== END ==
PROVIDERS: PCP Family Medicine; Visit Provider Family Medicine
DX: R04.2 Hemoptysis (principal)
CPT/HCPCS: 71260; Q9967

== ENCOUNTER → 2023-03-12 09:31 | Outpatient (CLI) | payer MEDICARE, SELFPAY ==
--- NOTE | 2023-03-12 09:35 | MM_ITS ---
PROCEDURE INFORMATION: Exam: MG Bilateral Screening 3D Mammography Exam date and time: 03/12/2023 9:26 AM Age: 62 years old Clinical indication: Screening, report left sided diffuse breast discomfort that is off and on, radiates over onto right side, has been going on for months, happens maybe 3-4 times a month. Her mother, maternal grandmother, maternal aunt, and maternal cousin had breast cancer. TECHNIQUE: Imaging protocol: Bilateral Screening tomosynthesis and 2D mammography including computer-aided detection (CAD) when performed. COMPARISON: 1. MG MM DIG SCREENING MAMM BI W/CAD 02/11/2021 9:49 AM 2. MG SCBI MM Dig screening mamm BI w/CAD 12/02/2018 2:39 PM 3. MG DMSB DIG MAMM-SCREEN [place] 04/18/2016 8:26 AM 4. MG DMDBAV DIG MAMM-DX MOIRA W ADD VIEWS 12/02/2015 2:09 PM FINDINGS: MAMMOGRAPHY: Breast composition: There are scattered areas of fibroglandular density. Mass: None. Architectural distortion: None. Calcifications: No suspicious calcifications. Asymmetric density: None. Skin thickening: None. Axillary adenopathy: None. IMPRESSION: See comment Note concern for bilateral breast pain, if focal or clinical concern, sonography can be added. Further evaluation of a painful abnormality should be based on clinical grounds regardless of radiographic findings or lack thereof. No mammographic evidence of malignancy. Annual screening is recommended unless otherwise clinically indicated. ASSESSMENT: BI-RADS Category 1: Negative
== END ==
PROVIDERS: PCP Family Medicine; Visit Provider Family Medicine
DX: Z12.31 Encounter for screening mammogram for malignant neoplasm of breast (principal)
CPT/HCPCS: 77063; 77067

== ENCOUNTER 2023-05-18 06:11 | Day surgery (SDC) | payer MEDICARE, SELFPAY ==
[2023-05-15 13:39] VITALS: BMI 33.3
[2023-05-18 06:40] VITALS: BP 151/77; PULSE 83; RESP 18; TEMP 36.9; O2SAT 93
[2023-05-18 06:54] LABS: POC Glucose,Bedside 175 (70-110)
--- NOTE | 2023-05-18 07:01 | EXP.ANES.CKL ---
[facility] Disclaimer: The information contained in this section may have been updated after the patient was seen, as this information can be updated by other users. Medical History Hx of carpal tunnel syndrome Hyperlipidemia Hypertension Hypothyroidism Surgical History History of bilateral tubal ligation History of cholecystectomy Hx of carpal tunnel repair Hx of shoulder surgery Family History Other Colon cancer Family history of cancer Family history of diabetes mellitus type II Family history of hypothyroidism Social History Smoking Status: Never smoker second hand exposure: No alcohol intake: never substance use type: denies use current occupational status: retired and disabled Travel in the last 8 weeks: Inside the [place] household members: spouse housing: house current occupational exposures/hazards: No caffeine: Yes [facility] Anesthesia Checklist Patient Identification Patient Identification: Arm Band and Verbal (Name & ) Structural Data Admitted From: Home Planned Operative Procedure/s: Colonoscopy Consent for Planned Operative Procedure(s) Verified: Yes NPO Status Verified Time NPO: 00:00 Additional verifications Anesthesia Reactions: No Hx Blood Transfusions: No Blood Transfusion Reaction: No Airway Assessment Mallampati Score:: Class III C-Spine Mobility Assessed: Yes TMJ Mobility Assessed: Yes Dentition: Good Dentition Neurological Assessment Level of Consciousness: Awake Hx Seizures: No Numbness or tingling in extremities: No Anesthesia Plan Anesthesia Risk discussed: Yes Anesthesia Plan: Verified ASA Class: III Anesthesia Type: MAC
[2023-05-18 07:23] VITALS: O2SAT 99
[2023-05-18 07:52] VITALS: BP 82/53; PULSE 76; RESP 18; TEMP 36.2; O2SAT 89
--- NOTE | 2023-05-18 07:52 | P.PCN_ITS ---
Procedure: Date: 05/18/23 Patient Date of :: 1960 Procedure Performed:: Colonoscopy to terminal ileum with polypectomy snare and biopsy forceps Indications:: Patient is a 62-year-old female with somewhat of a family history of colon cancer in her sister and aunt. I had performed colonoscopy on her in 2018 which was unremarkable. Patient wished to pursue repeat colonoscopy which performed in 2020 which revealed no adenomatous polyps but lymphoid aggregate. She was scheduled for repeat colonoscopy. Performing Provider:: Tom Mesa MD Referring Provider:: Duane Cruz Sedation:: MAC sedation Procedure:: Patient history was obtained and appropriate physical examination was performed. Patient's medications and allergies were reviewed. Informed consent was obtained after explaining the benefits, alternatives, and risks of the procedure including, but not limited to, bleeding, perforation, missed lesions, and adverse reaction to anesthesia medications. Patient was transported to endoscopy procedure room. Patient was connected to monitoring devices. Throughout the procedure the patient's blood pressure, pulse, and oxygen saturations were monitored continuously. Patient identifica tion and planned procedure were verified by the staff. Patient was positioned in lateral decubitus position. Digital anorectal exam was performed. Variable stiffness Olympus colonoscope was inserted and advanced under direct visualization to the cecum. Adequacy of the colonic preparation was noted. The colonoscope was advanced a short distance into the terminal ileum. The colonoscope was then slowly withdrawn while carefully examining the color, texture, anatomy, and integrity of the mucosoa circumferentially. Within the rectum retroflexion was performed. Colonoscope was then withdrawn. , Colonic preparation was good. There was a small adenomatous appearing polyp in the ascending colon removed with cold snare. There was possible diminutive polyp in the descending colon removed with biopsy forceps. There was hyperplastic appearing rectosigmoid polyp removed with cold snare. She has some rare diverticulosis. There were internal anal papillae. . Findings:: Polyps as noted above. Ascending colon polyp appeared adenomatous Rare diverticulosis Internal anal papilla/hemorrhoids Recommendations:: Repeat colonoscopy 2 or 3 years Complications:: None Estimated blood obtained (mL): 3 Colonoscopy Component Colonoscopy Component Was a colonoscopy performed during today's procedure?: Yes Recommended follow up colonoscopy of at least 10 years?: No If no, follow up colonoscopy recommended in ___ years?: 2-3 Reason for not recommending >/= 10 yr follow-up interval?: See recommendations Family history and polyp
--- NOTE | 2023-05-18 07:59 | PC.NURSE ---
Pt placed on O2 2L NC. sats increased to 97%
[2023-05-18 08:02] VITALS: BP 97/56; PULSE 72; RESP 18; O2SAT 96
[2023-05-18 08:11] VITALS: BP 111/74; PULSE 71; RESP 18; O2SAT 97
[2023-05-18 08:19] VITALS: BP 125/57; PULSE 84; RESP 18; O2SAT 95
== END 2023-05-18 08:25 | disposition home or self-care (01) ==
PROVIDERS: PCP Family Medicine; Visit Provider Surgery
PROC: 0DJD8ZZ Inspection of Lower Intestinal Tract, Via Natural or Artificial Opening Endoscopic (ICD-10-PCS; CPT 45380; principal; 2023-05-18 07:30)
DX: Z12.11 Encounter for screening for malignant neoplasm of colon (principal); Z86.010 Personal history of colon polyps; Z80.0 Family history of malignant neoplasm of digestive organs; K57.30 Diverticulosis of large intestine without perforation or abscess without bleeding; K64.8 Other hemorrhoids; K63.5 Polyp of colon; E11.9 Type 2 diabetes mellitus without complications
CPT/HCPCS: 45380; 45385; 82962; 88305; J2704

== ENCOUNTER 2023-08-05 10:33 | Emergency (ER) | payer MEDICARE, SELFPAY ==
[2023-08-05] VITALS (9 sets, daily range): BP systolic 94–145; BP diastolic 57–86; PULSE 83–130; RESP 12–31; TEMP 36.6–36.9; O2SAT 94–99; BMI 34.9
--- NOTE | 2023-08-05 10:35 | ECG_ITS ---
APPROVED REPORT Exam: Resting ECG HR:116 bpm ECG Measurements Heart Rate 116 AXES MA 163 P 62 QRSd 82 QRS -18 QT 312 T 37 QTc 381 Conclusion SINUS TACHYCARDIA ABNORMAL RHYTHM ECG UNCONFIRMED REPORT Electronically signed by : Raul Morales MD 08/06/2023 14:45:55
--- NOTE | 2023-08-05 10:40 | XR_ITS ---
PROCEDURE INFORMATION: Exam: XR Chest Exam date and time: 08/05/2023 10:48 AM Age: 62 years old Clinical indication: Cough and shortness of breath; Additional info: Cp/soa, cough TECHNIQUE: Imaging protocol: Radiologic exam of the chest. Views: 2 views. COMPARISON: CT CHEST W CON 09/29/2021 9:54 AM FINDINGS: Lungs: Lung wynne are aerated and clear. No infiltrates or overt CHF. Pleural spaces: Unremarkable. No pleural effusion. No pneumothorax. Heart/Mediastinum: Unremarkable. No cardiomegaly. Bones/joints: Unremarkable for age. IMPRESSION: Negative chest. No active disease.
--- NOTE | 2023-08-05 10:43 | PC.NURSE ---
Dr. Dior at [facility] for pt eval
[2023-08-05 10:44] LABS: Coronavirus 19, PCR Not Detected (NotDetected); Influenza A, PCR Not Detected (NotDetected); Influenza B, PCR Not Detected (NotDetected)
[2023-08-05 10:52] LABS: Basophils # 0.1 K/mm3 (0-0.2); Basophils % 0.7 % (0.1-2.0); Eosinophils # 0.1 K/mm3 (0.0-0.4); Eosinophils % 0.7 % (0.1-12.0); Hematocrit 42.4 % (37.0-47.0); Hemoglobin 14.1 g/dL (12.2-16.2); Lymphocytes # 4.3 K/mm3 (0.7-4.5); Lymphocytes % 40.6 % (10-50); Mean Corpuscular HGB Conc 33.3 g/dL (31.8-35.4); Mean Corpuscular Hemoglobin 29.7 pg (27.0-31.2); Mean Corpuscular Volume 88.9 fl (81-99); Mean Platelet Volume 8.6 fl (7.4-10.4); Monocytes # 0.9 K/mm3 (0.1-1.0); Monocytes % 8.1 % (1.7-9.3); Neutrophils # 5.3 K/mm3 (1.8-7.8); Neutrophils % 49.9 % (37.0-80.0); Platelet Count 211 K/mm3 (142-424); Red Blood Count 4.77 M/mm3 (4.20-5.40); Red Cell Distribution Width 13.1 % (11.5-17.5); White Blood Count 10.6 K/mm3 (4.8-10.8)
--- NOTE | 2023-08-05 10:52 | HMH.EDCP ---
Discharge Plan Disposition Patient Disposition: Home, Self-Care Condition: Good Prescriptions Prescriptions: New benzonatate 200 mg capsule 200 mg PO TID PRN (Reason: cough) Qty: 20 0RF albuterol sulfate 90 mcg/actuation HFA aerosol inhaler 2 inh inhalation Q6H PRN (Reason: shortness of breath or wheezing) Qty: 8.5 0RF No Action metformin 1,000 mg tablet 500 mg PO BID lisinopril 10 mg tablet 10 mg PO DAILY gabapentin 300 MG capsule 300 mg PO BID valsartan 160 mg tablet 160 mg PO DAILY rosuvastatin 20 mg tablet 20 mg PO DAILY levothyroxine 150 mcg tablet 150 mcg PO DAILY Referrals Follow up/Referrals: Duane Cruz MD [Primary Care Provider] - See instructions Activity Restrictions/Add. Instructions Additional Instructions/Restrictions: You were evaluated in the emergency department today. Take Tylenol and ibuprofen at home as needed for pain and fever. Hydrate is much as possible. Use your inhaler at home as needed for wheezing. station superintendent prescription for cough medication and take as needed for cough. Stay orally hydrated. Return to the emergency department for new or worsening symptoms. Clinical Impressions Clinical Impression: Viral URI with cough, Wheezing, Dehydration Instructions Patient Instructions: DI for Viral Upper Respiratory Infection -- Adult Discharge ED Provider: Jess Dior HPI General Chief Complaint: Shortness of Breath/Dyspnea Stated Complaint: CP Time Seen by Provider: 08/05/23 10:35 Mode of Arrival: Family Vehicle Source of Information: Patient and Medical Record Limitations: No Limitations Description of Symptoms (Recalled from ER Triage Doc. by RN): Pt c/o midsternal chest tightness and heart pounding , SOA, fever, sinus & chest congestion, and productive cough. States her symptoms began on , t-max 101.2, and have progressively became worse. Denies any cardiac hx, she does take meds for HTN, HLD, DM, and Hypothyroidism. History of Present Illness HPI narrative: This patient is a 62-year-old female with a history of hypothyroidism, hypertension, hyperlipidemia, and diabetes presenting to the emergency department for evaluation with concern for chest pain, palpitations, cough, congestion, and fevers at home. Patient reports that whenever she gets up and starts moving around, she feels like she cannot catch her breath and feels like her heart is racing. She is concerned that she may be developing pneumonia. She denies any other concerns at this time. She denies any history of cardiopulmonary issues, such as CAD, asthma, COPD, or other concerns. She is a never smoker. Related Data Home Medications Medication Instructions Recorded Confirmed metformin 1,000 mg tablet 500 mg PO BID Diabetes 11/29/18 08/05/23 lisinopril 10 mg tablet 10 mg PO DAILY Hypertension 02/07/21 08/05/23 gabapentin 300 mg capsule 300 mg PO BID Pain 03/10/21 08/05/23 rosuvastatin 20 mg tablet 20 mg PO DAILY Cholesterol 05/15/23 08/05/23 valsartan 160 mg tablet 160 mg PO DAILY htn 05/15/23 08/05/23 levothyroxine 150 mcg tablet 150 mcg PO DAILY 08/05/23 08/05/23 Previous Rx's Medication Instructions Recorded albuterol sulfate 90 mcg/actuation 2 inh inhalation Q6H PRN shortness 08/05/23 aerosol inhaler of breath or wheezing #8.5 grams benzonatate 200 mg capsule 200 mg PO TID PRN cough #20 caps 08/05/23 Allergies Allergy/AdvReac Type Severity Reaction Status Date / Time codeine Allergy Verified 06/07/23 10:36 [facility] Disclaimer: The information contained in this section may have been updated after the patient was seen, as this information can be updated by other users. Medical History Hx of carpal tunnel syndrome Hyperlipidemia Hypertension Hypothyroidism Surgical History History of bilateral tubal ligation History of ch
[2023-08-05 10:53] LABS: Chloride 108 mmol/L (98-107); Potassium 3.7 mmoL/L (3.5-5.1); Sodium 140 mmol/L (136-145)
[2023-08-05 10:55] LABS: Blood Urea Nitrogen 21 mg/dl (7-17); Creatinine Clearance Estimated 80 mL/min (50-200); Estimated Glomerular Filt Rate 50 ml/min (>60); GFR (African American) 61 ML/MIN (>60)
[2023-08-05 10:56] LABS: Alanine Aminotransferase 32 U/L (12-78); Albumin Level 4.3 g/dl (3.5-5.0); Albumin/Globulin Ratio 1.2 (1.1-1.8); Alkaline Phosphatase 88 U/L (38-126); Anion Gap 16.7 mEq/L (5-15); Aspartate Amino Transferase 36 U/L (14-36); Bilirubin,Total 0.8 mg/dl (0.2-1.3); Calcium 9.3 mg/dl (8.4-10.2); Carbon Dioxide 19 mmol/L (22.0-30.0); Globulin 3.5 g/dL (1.3-3.2); Glucose 176 mg/dl (74-100); Total Protein,Serum 7.8 g/dl (6.3-8.2)
[2023-08-05 11:06] LABS: NT Pro Brain Natriuretic Pep. 105 pg/mL (0-125)
[2023-08-05 11:13] LABS: T4 (Thyroxine) 13.5 ug/dl (5.53-11.0)
--- NOTE | 2023-08-05 11:16 | PC.NURSE ---
RESP CALLED FOR DUO NEB
--- NOTE | 2023-08-05 11:23 | PC.NURSE ---
Pt provided with ice chips
--- NOTE | 2023-08-05 11:27 | PC.NURSE ---
RT at [facility] to administer breathing treatment
[2023-08-05 11:28] LABS: Thyroid Stimulating Hormone < 0.02 uIU/mL (0.465-4.68)
[2023-08-05 11:33] LABS: Troponin I < 0.01 ng/ml (0.00-0.034)
[2023-08-05 11:37] LABS: Lactic Acid 1.5 mmol/L (0.7-2.1)
[2023-08-05 11:42] LABS: D-Dimer 1.34 ug/mL (0.0-0.5)
--- NOTE | 2023-08-05 11:52 | CT_ITS ---
PROCEDURE INFORMATION: Exam: CTA Chest With Contrast Exam date and time: 08/05/2023 12:18 PM Age: 62 years old Clinical indication: Shortness of breath; Additional info: Cp/soa, elevated dimer TECHNIQUE: Imaging protocol: Computed tomographic angiography of the chest with contrast. Exam focused on the arteries. 3D rendering (Not supervised by radiologist): MIP and/or 3D reconstructed images were created by the technologist. Radiation optimization: All CT scans at this facility use at least one of these dose optimization techniques: automated exposure control; mA and/or kV adjustment per patient size (includes targeted exams where dose is matched to clinical indication); or iterative reconstruction. Contrast material: ISOVUE 370; Contrast volume: 70 ml; Contrast route: INTRAVENOUS (IV); REPORTING DATA: Count of CT and Cardiac NM exams in prior 12 months: This patient has received 0 known CTs and 0 known cardiac nuclear medicine studies in the 12 months prior to the current study. COMPARISON: CT CHEST W CON 09/29/2021 9:54 AM FINDINGS: Pulmonary arteries: Pulmonary vasculature is adequately opacified without filling defects or other evidence of acute pulmonary embolism. Aorta: Unremarkable. No aortic aneurysm. No aortic dissection. Lungs: . Stable small calcified nodules left mid lung zone, granulomatous in nature. Lung wynne are otherwise aerated and clear. Pleural spaces: Unremarkable. No pneumothorax. No pleural effusion. Heart: Heart is not significantly enlarged. No significant coronary artery calcifications. No significant pericardial effusion. Mediastinal space: Chronic granulomatous calcifications within the mediastinum and left hilum, stable. Lymph nodes: Unremarkable. No enlarged lymph nodes. Gallbladder and bile ducts: Gallbladder has been removed. Bile ducts are not appreciably dilated. Spleen: Few chronic granulomatous calcifications within the liver and spleen unchanged. Kidneys and ureters: Stable benign-appearing left renal cyst. Bones/joints: Unremarkable. No acute fracture. Soft tissues: Unremarkable. IMPRESSION: Negative CT angiogram of the chest. No evidence of acute pulmonary embolism.
[2023-08-05 11:55] LABS: Procalcitonin 0.103 ng/mL (0.0-2.0)
--- NOTE | 2023-08-05 12:25 | PC.NURSE ---
LAB CALLED TO DRAW A 2 HR TROP
[2023-08-05 13:13] LABS: Troponin I < 0.01 ng/ml (0.00-0.034)
== END 2023-08-05 13:47 | disposition home or self-care (01) ==
PROVIDERS: Emergency Provider Emergency Medicine; PCP Family Medicine
DX: R07.9 Chest pain, unspecified (principal); J06.9 Acute upper respiratory infection, unspecified; R06.2 Wheezing; E86.0 Dehydration; E03.9 Hypothyroidism, unspecified; I10 Essential (primary) hypertension; R00.0 Tachycardia, unspecified; E78.5 Hyperlipidemia, unspecified; E11.9 Type 2 diabetes mellitus without complications
CPT/HCPCS: 36415; 71046; 71275; 80053; 83605; 83880; 84145; 84436; 84443; 84484; 85025; 85378; 87636; 93005; 96361; 96374; 96375; 99285; J0131; Q9967

== ENCOUNTER 2023-09-18 13:21 | Emergency (ER) | payer MEDICARE, SELFPAY ==
[2023-09-18 14:30] VITALS: BP 176/88; PULSE 110; RESP 21; TEMP 37.1; O2SAT 95; BMI 29.7
--- NOTE | 2023-09-18 14:44 | ED_ITS ---
Discharge Plan Disposition Patient Disposition: Home, Self-Care Condition: Good Prescriptions Prescriptions: No Action metformin 1,000 mg tablet 500 mg PO BID lisinopril 10 mg tablet 10 mg PO DAILY gabapentin 300 MG capsule 300 mg PO BID valsartan 160 mg tablet 160 mg PO DAILY rosuvastatin 20 mg tablet 20 mg PO DAILY levothyroxine 150 mcg tablet 150 mcg PO DAILY benzonatate 200 mg capsule 200 mg PO TID PRN (Reason: cough) Qty: 20 0RF albuterol sulfate 90 mcg/actuation HFA aerosol inhaler 2 inh inhalation Q6H PRN (Reason: shortness of breath or wheezing) Qty: 8.5 0RF Referrals Follow up/Referrals: Duane Cruz MD [Primary Care Provider] - See instructions Activity Restrictions/Add. Instructions Additional Instructions/Restrictions: *Monitor Temp, Over the counter Motrin or Tylenol as directed/as needed Tylenol every 4 hours and Motrin every 6 hours (as long as your family doctor has told you that you can take it) for fever or pain. and straight to ER if unable to lower temp less than 101.0 after medication given *Warm salt water gargles may help to soothe the throat *Throat Lozenges? *Warm fluids like tea with honey may help to soothe the throat? *Sleep elevated *Humidifier/Vaporizer Follow up IMMEDIATELY for new or worsening symptoms or no Noticeable improvement over the next 48-72 hours. 911 for difficulty breathing or swallowing You were tested for today for Upper Respiratory Panel with COVID19 your test re sult should be back in the next 24hours, you may check your results on the [facility] My Health Portal if your COVID or Influenza is positive you must Quarantine for 5 days Clinical Impressions Clinical Impression: Exposure to COVID-19 virus Instructions Patient Instructions: DI for Viral Syndrome Discharge ED Provider: Christy Ahumada [facility] HPI General Stated complaint: covid tested Mode of Arrival: Ambulatory Source of Information: Patient Limitations: No Limitations Time Seen by Provider: 09/18/23 14:45 Description of Symptoms (Recalled from Triage Doc. by RN): PATIENT STATES SHE BEGAN HAVING CHILLS AND BODY ACHES LAST NIGHT AND TESTED POSITIVE FOR COVID AT HOME. NEEDING A COVID TEST HEENT Symptoms (Recalled from RN notes): No Resp Symptoms (Recalled from RN notes): No Skin Symptoms (Recalled from RN notes): No MS Symptoms (Recalled from RN notes): No Functional Status (Recalled from RN notes): WNL History of Present Illness Provider Complaint: Patient states that she was around her sister all weekend that tested positive for COVID today States that she started having chills, body aches, and nasal congestion last night and took a home COVID test and it was positive so she came in requesting a home COVID test Related Data Home Medications Medication Instructions Recorded Confirmed metformin 1,000 mg tablet 500 mg PO BID Diabetes 11/29/18 08/05/23 lisinopril 10 mg tablet 10 mg PO DAILY Hypertension 02/07/21 08/05/23 gabapentin 300 mg capsule 300 mg PO BID Pain 03/10/21 08/05/23 rosuvastatin 20 mg tablet 20 mg PO DAILY Cholesterol 05/15/23 08/05/23 valsartan 160 mg tablet 160 mg PO DAILY htn 05/15/23 08/05/23 levothyroxine 150 mcg tablet 150 mcg PO DAILY 08/05/23 08/05/23 Previous Rx's Medication Instructions Recorded albuterol sulfate 90 mcg/actuation 2 inh inhalation Q6H PRN shortness 08/05/23 aerosol inhaler of breath or wheezing #8.5 grams benzonatate 200 mg capsule 200 mg PO TID PRN cough #20 caps 08/05/23 Allergies Allergy/AdvReac Type Severity Reaction Status Date / Time codeine Allergy Verified 06/07/23 10:36 Worker's Comp Is this a Worker's Comp case?: No [facility] Disclaimer: The information contained in this section may have been updated after the patient was seen, as this information can be updated by other users. Medical History Hx of carpal tunnel syndrome Hyperlipidemia Hypertension Hypothyroidism Surgical History History of bilateral tubal ligation History of cholecystectomy History of colonoscopy Hx of carpal tunnel repair Hx of shoulder surgery Family History Other Colon cancer Family history of cancer Family history of diabetes mellitus type II Family history of hypothyroidism Social History Smoking Status: Never smoker second hand exposure: No alcohol intake: never substance use type: denies use current occupational status: retired and disabled Travel in the last 8 weeks: Inside the [place] household members: spouse housing: house current occupational exposures/hazards: No caffeine: Yes ROS Obtained: Yes All systems reviewed & no additional complaints except as documented and Yes Systems reviewed as appropriate & no additional complaints except as documented Constitutional Constitutional: Reports system reviewed and no additional complaints, except as documented, Reports as per HPI, Reports body ache, Reports chills and Reports fever(s) ENT Ears, Nose, Mouth, and Throat: Reports system reviewed and no additional co mplaints, except as documented, Reports as per HPI and Reports nasal congestion Cardiovascular Cardiovascular: Reports system reviewed and no additional complaints, except as documented and Reports as per HPI Respiratory Respiratory: Reports system reviewed and no additional complaints, except as documented, Reports as per HPI, Denies shortness of breath and Denies chest congestion Gastrointestinal Gastrointestingal: Reports system reviewed and no additional complaints, except as documented and as per HPI Physical Exam General General appearance: alert and in no apparent distress ENT ENT exam: Present mucous membranes moist Respiratory Respiratory exam: Present normal lung sounds bilaterally; Absent respiratory distress or wheezes Cardiovascular Cardiovascular exam: Present regular rate, normal rhythm and normal heart sounds Neurological Exam Neurological exam: Present alert, oriented X3 and normal gait Medical Decision Making Freedom Inquiry Pt receiving controlled substance: No Freedom was queried for this patient: No Vital Signs: 09/18/23 14:30 Temperature 98.7 F Temperature Source Oral Pulse Rate [Left Brachial] 110 H Respiratory Rate 21 Blood Pressure [Left Arm] 176/88 H Blood Pressure Mean [Left Arm] 117 Blood Pressure Source [Left Arm] Automatic Cuff Blood Pressure Position [Left Arm] Sitting 02 Sat by Pulse Oximetry 95 Oxygen Delivery Method Room Air Orders (Tests/Meds): ORDERS Category Date Time Status Full Resp Panel w/COVID ([facility]) Routine Lab 09/18/23 14:36 Ordered
[2023-09-18 14:50] VITALS: BP 176/88; PULSE 110; RESP 21; TEMP 37.1; O2SAT 95
[2023-09-18 15:03] LABS: Adenovirus,PCR Not Detected (NotDetected); Coronavirus 229E Not Detected (NotDetected); Coronavirus NL63 Not Detected (NotDetected); Coronavirus OC43 Not Detected (NotDetected); Coronovirus HKU1,PCR Not Detected (NotDetected); Human Metapneumovirus Not Detected (NotDetected); Influenza A, PCR Not Detected (NotDetected); Influenza AH1, 2009 Not Detected (NotDetected); Influenza AH1, PCR Not Detected (NotDetected); Influenza AH3,PCR Not Detected (NotDetected); Influenza B, PCR Not Detected (NotDetected); Parainfluenza 1, PCR Not Detected (NotDetected); Parainfluenza 2, PCR Not Detected (NotDetected); Parainfluenza 3, PCR Not Detected (NotDetected); Parainfluenza 4, PCR Not Detected (NotDetected); Respiratory Syncytial Virus Not Detected (NotDetected); Rhinovirus/Enterovirus Not Detected (NotDetected)
[2023-09-18 16:30] LABS: Coronavirus 19, PCR Detected (NotDetected)
== END 2023-09-18 14:53 | disposition home or self-care (01) ==
PROVIDERS: Emergency Provider Nurse Practitioner; PCP Family Medicine
DX: U07.1 COVID-19 (principal); R50.9 Fever, unspecified; R09.81 Nasal congestion; R09.89 Other specified symptoms and signs involving the circulatory and respiratory systems; M79.18 Myalgia, other site; E78.5 Hyperlipidemia, unspecified; E03.9 Hypothyroidism, unspecified; I10 Essential (primary) hypertension
CPT/HCPCS: 87632; 87635; 99212; 99214; G0463

== ENCOUNTER 2025-06-19 10:07 | Outpatient (CLI) | payer MEDICARE, SELFPAY ==
--- OUTSIDE RECORDS SUMMARY | 2024-03-03 04:45 | XMS_ITS ---
[facility] [place] Address [address] [facility] [address] [place] [id number] Care Team Providers Care Refractory Technician Name Role Phone AnthonyRomeoDuane Primary Care Provider [place] Sunshine Unavailable [phone] Results Component Value Reference Range Notes P-T4 Free (thyroxine) Reviewed date:03/04/2024 08:25:14 AM Interpretation:Normal Performing Lab: Notes/Report: Test performed by [facility] [address] [place], [place] [address] [place] , [address], [place] [address] Linden Weller MD, Bulk Tank Driver CLIA: [id number] Thyroxine Free (free T4) 1.14 0.86-1.76 ng/dL P-TSH Reviewed date:03/04/2024 08:25:14 AM Interpretation: Performing Lab: Notes/Report: Test Cancelled Test Cancelled Test Cancel led P-TSH reflex to FT4 Reviewed date:03/04/2024 08:25:14 AM Interpretation:<0.005 Performing Lab: Notes/Report: Test performed by [facility] [address] [place], [place] [address] , [address], [place] [address] Linden Weller MD, Bulk Tank Driver CLIA: [id number] TSH reflex to FT4 <0.005 0.43-5.25 mU/L REASON FOR VISIT blood work Medications Medication SIG (Take, Route, Frequency, Duration) Notes Start Date End Date Status Gabapentin 300 MG 1 capsule Orally Two times a day; Duration: 90 days 10/24/2023 Active Rosuvastatin Calcium 20 MG 1 tablet Oral ly Once a day; Duration: 90 days Active metFORMIN HCl 1000 MG 1 tablet with a me al Orally Two times a day; Duration: 90 days Active Valsartan 160 MG 1 tablet Orally Once a day; Duration: 90 days Active Levothyroxine Sodium 150 MCG 1 tab(s) Or ally once a day; Duration: 90 days Active Encounters Encounter Location Date Provider Diagnosis [facility] [address] [facility] [address] [place], [place] [id number] 03/03/2024 Duane Cruz Hypothyroidism (acqu ired) E03.9 Assessments Encounter Date Diagnosis (ICD Code) Assessment Notes Treatment Notes Treatment Clinical Notes Section Notes 03/03/2024 Hypothyroidism (acquired) (ICD-10 - E03.9) Plan Of Treatment No Information Progress Notes * BLAKE HANNONB:1960 (64 yo F)Acc No.[id number]:03/03/2024 Patient: HARI VIERA Provider: Juan Cruz M.D. :1960 A ge:63 Y S ex:Female Date:03/03/2024 Address:[place] [address] [id number] Subjective: * Chief Complaints: * 1 . Blood work. * Medical History: * Medications: T aking metFORMIN HCl 1000 MG Tablet 1 tablet with a meal Orally Two times a day , Taking Gabapentin 300 MG Capsule 1 capsule Orally Two times a day , Taking Rosuvastatin Calcium 20 MG Tablet 1 tablet Orally Once a day , Taking Valsartan 160 MG Tablet 1 tablet Orally Once a day , Taking Levothyroxine Sodium 150 MCG Tablet 1 tab(s) Orally once a day , Medication List reviewed and reconciled with the patient Objective: * Vitals: Assessment: * Assessment: 1. H ypothyroidism (acquired) - E03.9 (Primary) Plan: * Treatment: Value Reference Range T est Cancelled Test Cancelled - * Val Thorpe 03/04/2024 8:25: 06 AM >See phone encounter ?LAB: P-TSH reflex to FT4 (Collection Date & Time - 03/03/2024 10:05 AM)? <0.005* Value Reference Range T SH reflex to FT4 <0.005 L 0.43-5.25 - mU/L * Val Thorpe 03/04/2024 8:25: 06 AM >See phone encounter * Labs: * L ab: P-T4 Free (thyroxine) (Collection Date & Time - 03/03/2024 10:05 AM) N ormal Value Reference Range T hyroxine Free (free T4) 1.14 0.86-1.76 - ng/d L * [facility], support 03/04/2024 05:15:03 : This order was created by the Interface. Val Thorpe 03/04/2024 8:25:06 AM >See phone encounter * Images: Billing Information: * Visit Code: * Procedure Codes: * Electronic signature of Breana Curz MD on 06/19/2025 at 10:11 AM EDT Sign off status: Pending * Provider: Juan Cruz M.D. Date: 0 03/03/2024 Generated for Elizabeth pickett/Lorenzo/eTransmitting on: 1 10:11 AM EDT
--- OUTSIDE RECORDS SUMMARY | 2024-04-22 05:30 | XMS_ITS ---
Author Organization [facility] Address [address] [place] [id number] Care Team Providers Care Cook Helper Dessert Name Role Phone Duane Cruz Primary Care Provider [phone] Gilbert Sunshine Unavailable [phone] REASON FOR VISIT 6 months Encounters Encounter Location Date Provider Diagnosis [facility] [address] [place] [phone] 04/22/2024 Duane Cruz Plan Of Treatment No Information Progress Notes * CASIE HANNONADOB:1960 (64 yo F)Acc No.[id number]:04/22/2024 Progress Notes Patient: HARI VIERA Provider: Juan Cruz M.D. :1960 A ge:63 Y S ex:Female Date:04/22/2024 Address: [place] [id number] Subjective: * Chief Complaints: * 1 . 6 months. * Medical History: Objective: * Vitals: Assessment: Plan: * Treatment: * Images: Billing Information: * Visit Code: * Procedure Codes: * Electronic signature of Breana Cruz MD on 06/19/2025 at 10:11 AM EDT Sign off status: Pending * Provider: Juan Cruz M.D. Date: 0 04/22/2024 Generated for Printi ng/Faxing/eTransmitting on: 1 10:11 AM EDT
--- OUTSIDE RECORDS SUMMARY | 2024-05-06 05:00 | XMS_ITS ---
Author Organization [facility] Address [address] [id number] Care Team Providers Care Credit Collections Specialist Name Role Phone AnthonyRomeoDuane Primary Care Provider [phone] Gilbert Sunshine Unavailable [phone] Allergies No Known Allergies Results Component Value Reference Range Notes Glucose (In-House) Reviewed date:05/07/2024 09:19:47 AM Interpretation:188 Performing Lab: Notes/Report: 188 blood glucose 188 74 - 106 mg/dL Glycohemoglobin A1c (in hous e) Reviewed date:05/07/2024 09:19:47 AM Interpretation:8.4 Performing Lab: Notes/Report: 8.4 glycohemoglobin 8.4% 5 - 6.5 % P-T4 Free (thyroxine) Reviewed date:05/07/2024 09:19:47 AM Interpretation:0.29 Performing Lab: Notes/Report: Test performed by [facility] [address] [place] [address] , [address], [place] [address] Linden Weller MD, Protective Signal Repairer CLIA: [id number] Thyroxine Free (free T4) 0.29 0.86-1.76 ng/dL P-TSH Reviewed date:05/07/2024 09:19:47 AM Interpretation:8.28 Performing Lab: Notes/Report: Test performed by [facility] [address] [place], [place] [address], [address], [place] [address] Linden Weller MD, Protective Signal Repairer CLIA: [id number] TSH 8.28 0.43-5.25 mU/L REASON FOR VISIT yearly check up and labs Medications Medication SIG (Take, Route, Frequency, Duration) Notes Start Date End Date Status Levothyroxine Sodium 150 MCG 1 tab(s) Orally once a day Active Clotrimazole 1 % 1 application Last Ironer ally Twice a day 05/06/2024 Active Gabapentin 300 MG 1 capsule Orally Two times a day; Duration: 90 days 04/23/2024 Active Terbinafine HCl 250 MG 1 tablet Orally O nce a day; Duration: 15 day(s) 05/06/2024 Active Rosuvastatin Calcium 20 MG 1 tablet Oral ly Once a day; Duration: 90 days Active Valsartan 160 MG 1 tablet Orally Once a day Active metFORMIN HCl 1000 MG 1 tablet with a me al Orally Two times a day Active Social History Tobacco Use: Social History Observation Description Date Details (start date - stop date) Never Smoker NA - NA CURRENT TOBACCO USE: Question Answer Notes Are you a: never smoker Vital Signs Weight 176.4 lbs 05/06/2024 Blood pressure systolic 130 mm Hg 05/06/20 24 Blood pressure diastolic 82 mm Hg 024 Heart Rate 69 /min 05/06/2024 Height 64.5 in 05/06/2024 BMI 29.81 kg/m2 05/06/2024 Encounters Encounter Location Date Provider [facility] [address] [facility] [address] [phone] 05/06/2024 Duane Cruz Type 2 diabetes dina itus with complication, without long-term current use of insulin E11.8 ; Hypothyroidism (acquired) E03.9 ; Essential hypertension I10 and Tinea corporis B35.4 Assessments Encounter Date Diagnosis (ICD Code) Assessment Notes Treatment Notes Treatment Clinical Notes Section Notes 05/06/2024 Type 2 diabetes mellitus with complication, without long-term current use of insulin (ICD-10 - E11.8) 05/06/2024 Hypothyroidism (acquired) (ICD-10 - E03.9) 05/06/2024 Essential hypertension (ICD-10 - I10) 05/06/2024 Tinea corporis (ICD-10 - B35.4) Plan Of Treatment Medication Medication Name Sig Start Date Stop Date Notes Levothyroxine Sodium 150 MCG 1 tab(s) Orally once a day Clotrimazole 1 % 1 application Last Ironer ally Twice a day 05/06/2024 Terbinafine HCl 250 MG 1 tablet Orally O nce a day; Duration: 15 day(s) 05/06/2024 Valsartan 160 MG 1 tablet Orally Once a day metFORMIN HCl 1000 MG 1 tablet with a me al Orally Two times a day Next Appt Details Follow Up: 6 Months, Reason: Progress Notes * CASIE HANNONADOB:1960 (64 yo F)Acc No.[id number]:05/06/2024 Progress Notes Patient: HARI VIERA Provider: Juan Cruz M.D. :1960 A ge:63 Y S ex:Female Date:05/06/2024 Address:[facility] [place], [id number] Subjective: * Chief Complaints: * 1 . Yearly check up and labs. * HPI: C ardiology: 63 year old female presents with c/o Blood Pressure Elevated?Pt here to f/u on hypertension, states she is doing well and does not have any concerns. c/o Hyperlipidemia P t is fasting today. E ndocrinology: c/o Recent Blood Sugars P t here to f/u on DM 2, pt does check blood sugar at home. * ROS: D ERMATOLOGY: no R yolie. n o H tamia. G ASTROENTEROLOGY: no N ausea. n o V omiting. U ROLOGY: no D ifficulty urinating. n o B lood in urine. * Medical History: T ype 2 Diabetes, Hypertension, Hypercholestrolemia, Declared disabled in 2018 after right shoulder work injury, Left renal mass, see chest CT scan from 2021. * Surgical History: T ubal Ligation , Cholecystectomy , Shoulder . * Hospitalization/Major Diagno stic Procedure: B ack Pain- [facility] ER 02/19/2021, Back Pain- [facility] ER 02/27/2021. * Family History: M other: breast cancer. M aternal Grand Mother: breast cancer. P aternal aunt: throat cancer. M aternal uncle: lung cancer, diagnosed with Diabetes. S iblings: brother- throat cancer, sister - rectal cancer, diagnosed with Diabetes. F ather: diagnosed with Hypertension, Heart Disease. P aternal Grand Father: diagnosed with Hypertension. M aternal aunt: diagnosed with Diabetes. * Social History: C URRENT TOBACCO USE A re you a: n ever smoker. C affeine: yes, frequency: 2-3 cups coffee. Past smoking status: never smoked. * Medications: T aking Levothyroxine Sodium 150 MCG Tablet 1 tab(s) Orally once a day , Taking Valsartan 160 MG Tablet 1 tablet Orally Once a day , Taking metFORMIN HCl 1000 MG Tablet 1 tablet with a meal Orally Two times a day , Taking Rosuvastatin Calcium 20 MG Tablet 1 tablet Orally Once a day , Taking Gabapentin 300 MG Capsule 1 capsule Orally Two times a day , Medication List reviewed and reconciled with the patient * Allergies: N .K.D.A. Objective: * Vitals: W t:176.4, Temp:98.0, BP:130/82, HR:69, Nurse:zach, Ht: 64.5, BMI:29.81. * Examination: G eneral Examination: General Appearance: N AD. H eart: R SR. L ungs:?clear to auscultation. S kin: a nterior mid chest with a fairly large reddened area of skin that extends under each breast. Rash has a raised leading edge and some central clearing. P eripheral pulses: n ormal (2+) bilaterally. E xtremities: n o leg edema. ? Assessment: * Assessment: 1. T ype 2 diabetes mellitus with complication, without long-term current use of insulin - E11.8 (Primary) 2 . H ypothyroidism (acquired) - E03.9 3 . E ssential hypertension - I10 4 . T inea corporis - B35.4 Plan: * Treatment: Value Reference Range b lood glucose 188 74 - 106 mg/dL * Bess Marcelo 05/06/2024 9:58:11 AM > Val Thorpe 05/07/2024 9:19:39 AM >See phone encounter ?LAB: Glycohemoglobin A1c (in house) (Collection Date & Time - 05/06/2024)? 8.4* Value Reference Range g lycohemoglobin 8.4% 5 - 6.5 % * Bess Marcelo 05/06/2024 10:00:5 9 AM > Val Thorpe 05/07/2024 9:19:39 AM >See phone encounter 2.?Hypothyroidism (acquired)? Continue Levothyroxine Sodium Tablet, 150 MCG, 1 tab(s), Orally, once a day.?LAB: P-T4 Free (thyroxine) (Collection Date & Time - 05/06/2024 08:25 AM)? 0.29* Value Reference Range T hyroxine Free (free T4) 0.29 L 0.86-1.76 - ng/d L * Val Thorpe 05/07/2024 9:19: 39 AM >See phone encounter ?LAB: P-TSH (Collection Date & Time - 05/06/2024 08:25 AM)?8.28* Value Reference Range T SH 8.28 H 0.43-5.25 - mU/L * Val Thorpe 05/07/2024 9:19: 39 AM >See phone encounter 3.?Essential hypertension? Continue Valsartan Tablet, 160 MG, 1 tablet, Orally, Once a day.??4.?Tinea corporis? Start Terbinafine HCl Tablet, 250 MG, 1 tablet, Orally, Once a day, 15 day(s), 15 Tablet, Refills 0;?Start Clotrimazole Cream, 1 %, 1 application, Externally, Twice a day, 30 grams, Refills 1. ? * Procedure Codes: G 2211 Complex e/[place], [address] GLUCOSE TEST, 54817 GLYCATED HEMOGLOBIN TEST, Modifiers: QW * Follow Up: 6 Months * Images: Billing Information: * Visit Code: 36830 Office Visit, Est Pt., Level 4. * Procedure Codes: G2211 Complex e/[place]. [address] GLUCOSE TEST. 18754 GLYCATED HEMOGLOBIN TEST. Modifiers: QW * Electronic signature of Breana Cruz MD on 06/19/2025 at 10:11 AM EDT Sign off status: Pending * Provider: Juan Cruz M.D. Date: 0 05/06/2024 Generated for Elizabeth pickett/Lorenzo/eTpaulsmitting on: 1 10:11 AM EDT History and Physical Notes * HPI (History of Present Illness) Category Sub-Category Detail Notes Category Not es Endocrinology Recent Blood Sugars Pt here to f /u on DM 2, pt does check blood sugar at home Cardiology Blood Pressure Elevated Pt here to f/u on hypertension, states she is doing well and does not have any concerns Hyperlipidemia Pt is fasting today Examination Category Sub-Category Detail Notes Category Not es General Examination Heart: RSR Lungs: clear to auscultatio n Extremities: no leg edema General Appearance: NAD Skin: anterior mid chest w ith a fairly large reddened area of skin that extends under each breast. Rash has a raised leading edge and some central clearing Peripheral pulses: normal (2+) bilatera lly
--- OUTSIDE RECORDS SUMMARY | 2025-01-08 06:00 | XMS_ITS ---
Author Organization [facility] Address [address] [facility] [address] [place] [id number] Care Team Providers Care Direct Mail Marketer Name Role Phone Duane Cruz Primary Care Provider [phone] Gilbert Sunshine Unavailable [phone] Results Component Value Reference Range Notes P-T4 Free (thyroxine) Reviewed date:01/09/2025 09:23:38 AM Interpretation:0.53 Performing Lab: Notes/Report: Test performed by [facility] [address] [place] [address] , [place] [address] Linden Weller MD, Senior Copywriter CLIA: [id number] Thyroxine Free (free T4) 0.53 0.86-1.76 ng/dL P-TSH Reviewed date:01/09/2025 09:23:38 AM Interpretation:0.02 Performing Lab: Notes/Report: Test performed by [facility] [address] [place] [address] , [facility] [address], [place] [address] Linden Weller MD, Senior Copywriter CLIA: [id number] TSH 0.02 0.43-5.25 mU/L REASON FOR VISIT blood work Encounters Encounter Location Date Provider Diagnosis [facility] [address] [place] [phone] 01/08/2025 Duane Cruz Hypothyroidism (acqu ired) E03.9 Assessments Encounter Date Diagnosis (ICD Code) Assessment Notes Treatment Notes Treatment Clinical Notes Section Notes 01/08/2025 Hypothyroidism (acquired) (ICD-10 - E03.9) Plan Of Treatment No Information Progress Notes * BLAKE HANNONB:1960 (64 yo F)Acc No.[id number]:01/08/2025 Patient: HARI VIERA Provider: Juan Cruz M.D. :1960 A ge:64 Y S ex:Female Date:01/08/2025 Address:[place] [address], [id number] Subjective: * Chief Complaints: * 1 . Blood work. * Medical History: Objective: * Vitals: Assessment: * Assessment: 1. H ypothyroidism (acquired) - E03.9 Plan: * Treatment: Value Reference Range T hyroxine Free (free T4) 0.53 L 0.86-1.76 - ng/d L * Val Thorpe 01/09/2025 09:2 3:31 AM > See phone encounter ?LAB: P-TSH (Collection Date & Time - 01/08/2025 09:15 AM)?0.02* Value Reference Range T SH 0.02 L 0.43-5.25 - mU/L * Val Thorpe 01/09/2025 09:2 3:31 AM > See phone encounter * Images: Billing Information: * Visit Code: * Procedure Codes: * Electronic signature of Breana Cruz MD on 06/19/2025 at 10:11 AM EDT Sign off status: Pending * Provider: Juan Cruz M.D. Date: 0 01/08/2025 Generated for Elizabeth pickett/Lorenzo/eTransmitting on: 1 10:11 AM EDT
--- OUTSIDE RECORDS SUMMARY | 2025-01-13 07:30 | XMS_ITS ---
Author Organization [facility] Address [address] [facility] [address] [place] [id number] Care Team Providers Care House Builder Name Role Phone Duane Cruz Primary Care Provider [phone] Gilbert Sunshine Unavailable [phone] Allergies No Known Allergies Results Component Value Reference Range Notes CBC Fingerstick (in house) Reviewed date:01/13/2025 02:30:08 PM Interpretation: Performing Lab: Notes/Report: wbc 6.1 3.5 - 10 lym 52.7 15 - 50 mid 5.9 2 - 15 gran 41.4 35 - 80 rbc 4.30 3.5 - 5.5 hgb 12.4 11.5 - 16.5 hct 37.1 35 - 55 mcv 86.2 75 - 100 mch 28.8 25 - 35 mchc 33.4 31 - 38 plat 202 100 - 400 REASON FOR VISIT Med checkup, f/u thyroid labs, need additional labs completed Medications Medication SIG (Take, Route, Frequency, Duration) Notes Start Date End Date Status Promethazine-DM 6.25-15 MG/5ML 5 mL as needed Orally every 6 hrs 01/13/2025 Active metFORMIN HCl 1000 MG 1 tablet with a me al Orally Two times a day; Duration: 90 days Active Valsartan 160 MG 1 tablet Orally Once a day; Duration: 90 days Active Rosuvastatin Calcium 20 MG 1 tablet Oral ly Once a day; Duration: 90 days Active Benzonatate 200 MG 1 capsule as needed Orally Three times a day 01/13/2025 Active Gabapentin 300 MG 1 capsule Orally Two times a day; Duration: 90 days 04/23/2024 Active Levothyroxine Sodium 125 MCG 2 tablets i n the morning on an empty stomach Orally Once a day; Duration: 30 days 01/13/2025 Active Social History Tobacco Use: Social History Observation Description Date Details (start date - stop date) Never Smoker NA - NA CURRENT TOBACCO USE: Question Answer Notes Are you a: never smoker Problems Problem Type SNOMED Code ICD Code Onset Dates Problem Status W/U Status Risk Notes Problem Type 2 diabetes mellitus with other specified complication, unspecified whether continuous churn buttermaker insulin use (E11.69) Active confirmed Vital Signs Weight 171.6 lbs 01/13/2025 Blood pressure systolic 132 mm Hg 01/14/20 25 Blood pressure diastolic 78 mm Hg 025 Heart Rate 80 /min 01/13/2025 Height 64.5 in 01/13/2025 BMI 29 kg/m2 01/13/2025 Encounters Encounter Location Date Provider Diagnosis [facility] [address], [place] [id number] 01/13/2025 Duane Cruz Acute URI J06.9 ; Ty pe 2 diabetes mellitus without complication, without long-term current use of insulin E11.9 ; Hypothyroidism (acquired) E03.9 ; Essential hypertension I10 ; Pure hypercholesterolemia E78.00 ; Type 2 diabetes mellitus with complication, without long-term current use of insulin E11.8 ; Type 2 diabetes mellitus with other specified complication, unspecified whether continuous churn buttermaker insulin use E11.69 and BMI 29.0-29.9,adult Z68.29 Assessments Encounter Date Diagnosis (ICD Code) Assessment Notes Treatment Notes Treatment Clinical Notes Section Notes 01/13/2025 Acute URI (ICD-10 - J06.9) 01/13/2025 Type 2 diabetes dina itus without complication, without long-term current use of insulin (ICD-10 - E11.9) 01/13/2025 Hypothyroidism (acquired) (ICD-10 - E03.9) 01/13/2025 Essential hypertensi on (ICD-10 - I10) 01/13/2025 Pure hypercholesterolemia (ICD-10 - E78.00) 01/13/2025 Type 2 diabetes dina itus with complication, without long-term current use of insulin (ICD-10 - E11.8) 01/13/2025 Type 2 diabetes dina itus with other specified complication, unspecified whether intermediate insulin use (ICD-10 - E11.69) 01/13/2025 BMI 29.0-29.9,adult (ICD-10 - Z68.29) Plan Of Treatment Medication Medication Name Sig Start Date Stop Date Notes Promethazine-DM 6.25-15 MG/5ML 5 mL as n eeded Orally every 6 hrs 01/13/2025 metFORMIN HCl 1000 MG 1 tablet with a me al Orally Two times a day; Duration: 90 days Valsartan 160 MG 1 tablet Orally Once a day; Duration: 90 days Rosuvastatin Calcium 20 MG 1 tablet Oral ly Once a day; Duration: 90 days Levothyroxine Sodium 200 MCG 1 tab(s) Orally Once a day Benzonatate 200 MG 1 capsule as needed Orally Three times a day 01/13/2025 Levothyroxine Sodium 125 MCG 2 tablets i n the morning on an empty stomach Orally Once a day; Duration: 30 days 01/13/2025 Next Appt Details Follow Up: 6 Weeks, Reason: Progress Notes * BLAKE HANNONB:1960 (64 yo F)Acc No.[id number]:01/13/2025 Progress Notes Patient: HARI VIERA Provider: Juan Cruz M.D. :1960 A ge:64 Y S ex:Female Date:01/13/2025 Address:[place] [address], [id number] Subjective: * Chief Complaints: * 1 . Med checkup, f/u thyroid labs, need additional labs completed. * HPI: E ndocrinology: 64 year old female presents with c/o Recent Blood Sugars P t here to f/u on DM 2. Hypothyroidism P t here to f/u. Pt had labs completed 01/08/25 for thyroid testing only, see results: Thyroxine Free (free T4) 0.53, TSH 0.02. C ardiology: c/o Blood Pressure Elevated P t here to f/u on hypertension. Pt states she is doing well and does not have any concerns. c/o Hyperlipidemia P t is fasting today. * ROS: D ERMATOLOGY: no R yolie. n o H tamia. U ROLOGY: no D ifficulty urinating. n o B lood in urine. * Medical History: T ype 2 Diabetes, Hypertension, Hypercholestrolemia, Declared disabled in 2018 after right shoulder work injury, Left renal mass, see chest CT scan from 2021, Hypothyroidism. * Surgical History: T ubal Ligation , Cholecystectomy , Shoulder . * Hospitalization/Major Diagno stic Procedure: B ack Pain- [facility] 02/19/2021, Back Pain- [facility] 02/27/2021. * Family History: M [...] status: never smoked. * Medications: T aking Gabapentin 300 MG Capsule 1 capsule Orally Two times a day , Taking metFORMIN HCl 1000 MG Tablet 1 tablet with a meal Orally Two times a day , Taking Valsartan 160 MG Tablet 1 tablet Orally Once a day , Taking Rosuvastatin Calcium 20 MG Tablet 1 tablet Orally Once a day , Taking Levothyroxine Sodium 200 MCG Tablet 1 tab(s) Orally Once a day , Discontinued Terbinafine HCl 250 MG Tablet 1 tablet Orally Once a day , Discontinued Clotrimazole 1 % Cream 1 application Externally Twice a day , Medication List reviewed and reconciled with the patient * Allergies: N .K.D.A. Objective: * Vitals: W t: 171.6, Temp: 98.0, BP: 132/78, HR: 80, Nurse: zach, Ht: 64.5, BMI:29. * Examination: E NT/Respiratory: General Appearance: N AD. E yes: P ERRLA, sclera clear. O ral cavity : e rythema without exudate on pharynx. N jessica : n o cervical lymphadenopathy. H eart : R RR, normal S1 S2. L ungs: c lear to auscultation bilaterally.? Assessment: * Assessment: 1. A cute URI - J06.9 (Primary) 2 . T ype 2 diabetes mellitus without complication, without long-term current use of insulin - E11.9 3 . H ypothyroidism (acquired) - E03.9 4 . E ssential hypertension - I10 5 . P ure hypercholesterolemia - E78.00 6 . T ype 2 diabetes mellitus with complication, without long-term current use of insulin - E11.8 7 . T ype 2 diabetes mellitus with other specified complication, unspecified whether continuous churn buttermaker insulin use - E11.69 8. B IL 29.0-29.9,adult - Z68.29 Plan: * Treatment: Value Reference Range w bc 6.1 3.5 - 10 * l ym 52.7 15 - 50 * m id 5.9 2 - 15 * g ran 41.4 35 - 80 * r bc 4.30 3.5 - 5.5 * h gb 12.4 11.5 - 16.5 * h ct 37.1 35 - 55 * m cv 86.2 75 - 100 * m ch 28.8 25 - 35 * m chc 33.4 31 - 38 * p lat 202 100 - 400 * Paloma Owusu 01/13/2025 12:2 1:59 PM > Provider reviewed results while patient in office. 2.?Type 2 diabetes mellitus without complication, without long-term current use of insulin? Refill metFORMIN HCl Tablet, 1000 MG, 1 tablet with a meal, Orally, Two times a day, 90 days, 180, Refills 1.??3.?Hypothyroidism (acquired)? Stop Levothyroxine Sodium Tablet, 200 MCG, 1 tab(s), Orally, Once a day;?Start Levothyroxine Sodium Tablet, 125 MCG, 2 tablets in the morning on an empty stomach, Orally, Once a day, 30 days, 60, Refills 1.??4.?Essential hypertension? Refill Valsartan Tablet, 160 MG, 1 tablet, Orally, Once a day, 90 days, 90, Refills 1.??5.?Pure hypercholesterolemia? Refill Rosuvastatin Calcium Tablet, 20 MG, 1 tablet, Orally, Once a day, 90 days, 90, Refills 1. ? * Procedure Codes: G 2211 Complex e/[place], [address] CAPILLARY BLOOD DRAW, 06363 CBC WITH AUTO DIFF, G8752 MOST RECENT SYSTOLIC BP < 140MM HG, G8754 MOST RECENT DIASTOLIC BP < 90MM HG, G8420 BMI<30 AND >=22 CALC & DOCU, G8950 PREHTN/HTN BP DOC INDCD F/U DOC * Follow Up: 6 Weeks * Images: Billing Information: * Visit Code: 95610 Office Visit, Est Pt., Level 4. * Procedure Codes: G2211 Complex e/[place]. [address] CAPILLARY BLOOD DRAW. 41750 CBC WITH AUTO DIFF. G8752 MOST RECENT SYSTOLIC BP < 140MM HG. G8754 MOST RECENT DIASTOLIC BP < 90MM HG. G8420 BMI<30 AND >=22 CALC & DOCU. G8950 PREHTN/HTN BP DOC INDCD F/U DOC. * Electronic signature of Breana Cruz MD on 06/19/2025 at 10:11 AM EDT Sign off status: Pending * Provider: Juan Cruz M.D. Date: 0 01/13/2025 Generated for Elizabeth pickett/Lorenzo/eTransmitting on: 1 10:11 AM EDT History and Physical Notes * HPI (History of Present Illness) Category Sub-Category Detail Notes Category Not es Endocrinology Recent Blood Sugars Pt here to f/u on DM 2 Hypothyroidism Pt here to f/u. Pt h ad labs completed 01/08/25 for thyroid testing only, see results: Thyroxine Free (free T4) 0.53, TSH 0.02 Cardiology Blood Pressure Elevated Pt here to f/u on hypertension. Pt states she is doing well and does not have any concerns Hyperlipidemia Pt is fasting today Examination Category Sub-Category Detail Notes Category Not es ENT/Respiratory Oral cavity : erythema without exudate on pharynx Neck : no cervical lymphade nopathy Heart : RRR, normal S1 S2 Lungs: clear to auscultatio n bilaterally General Appearance: NAD Eyes: PERRLA, sclera clear
--- OUTSIDE RECORDS SUMMARY | 2025-02-26 04:45 | XMS_ITS ---
[facility] Address [address] [place] [id number] Care Team Providers Care Cutting Machine Tender Decorative Name Role Phone Duane Cruz Primary Care Provider Gilbert Sunshine Unavailable [phone] Results Component Value Reference Range Notes Glycohemoglobin A1c (in hous e) Reviewed date:02/27/2025 10:35:34 AM Interpretation:8.0 Performing Lab: Notes/Report: 8.0 glycohemoglobin 8.0% 5 - 6.5 % P-Comprehensive Metabolic Pa abimael (CMP) Reviewed date:02/27/2025 10:35:34 AM Interpretation:Glu 124 Performing Lab: Notes/Report: Test performed by [facility] [address] [place] [address] , [address], [place] [address] Linden Weller MD, Vice President Business & Corporate Development CLIA: [id number] Sodium 143 135-145 mmol/L Potassium 4.1 3.5-5.3 mmol/L Chloride 108 97-108 mmol/L CO2 24 20-32 mmol/L Glucose 124 65-99 mg/dL BUN 9 8-23 mg/dL Creatinine 1.00 0.50-1.00 mg/dL Calcium 10.0 8.6-10.4 mg/dL eGFR by Creatinine 63 >59 mL/min/1.73m2 Protein 7.1 6.0-8.3 g/dL Albumin 4.1 3.5-5.3 g/dL Alkaline Phosphatase 68 35-121 IU/L ALT (SGPT) 24 <5-47 IU/L AST (SGOT) 25 <5-40 IU/L Bilirubin, Total 0.6 <0.2-1.2 mg/dL A/G Ratio 1.4 1.1-2.5 P-T4 Free (thyroxine) Reviewed date:02/27/2025 10:35:34 AM Interpretation: Normal Performing Lab: Notes/Report: Test performed by [facility] [address] , [address], [place] [address] Linden Weller MD, Vice President Business & Corporate Development CLIA: [id number] Thyroxine Free (free T4) 0.90 0.86-1.76 ng/dL P-Lipid Panel Reviewed date:02/27/2025 10:35:34 AM Interpretation:HDL 39, Chol/HDL 4.56, Non-HDL 139 Performing Lab: Notes/Report: Test performed by [facility] [address] , [address], [place] [address] Linden Weller MD, Vice President Business & Corporate Development CLIA: [id number] Cholesterol 178 <200 mg/dL Triglycerides 129 <150 mg/dL HDL Cholesterol 39 >39 mg/dL Cholesterol / HDL Ratio 4.56 0.00-4.44 Ratio Non-HDL Cholesterol 139 <130 mg/dL LDL Cholesterol (Calculation) 113 <130 mg/dL LDL Cholesterol Levels* Less than 100 mg/dL Optimal 100 to 129 mg/dL Near Optimal/ Above Optimal 130 to 159 mg/dL Borderline High 160 to 189 mg/dL High 190 mg/dL and above Very High * Categories as recommended by the 2004 ATPIII guidelines LDL/HDL Ratio 2.9 <3.3 Ratio LDL Cholesterol Patient History Test Date: 10/24/2023 LDL Results: 122 Units: mg/dL % Change: - Test Date: 02/26/2025 LDL Results: 113 Units: mg/dL % Change: -7% P-TSH Reviewed date:02/27/2025 10:35:34 AM Interpretation:<0.005 Performing Lab: Notes/Report: Test performed by [facility] [address] [place] [address] , [place] [address] Linden Weller MD, Vice President Business & Corporate Development CLIA: [id number] TSH <0.005 0.43-5.25 mU/L P-Microalbumin/Creatinine, R andom Urine Sample Reviewed date:02/27/2025 10:35:34 AM Interpretation: Normal Performing Lab: Notes/Report: Test performed by [facility] [address] [place], [place] [id number] , [place] [address] Linden Weller MD, Vice President Business & Corporate Development CLIA: [id number] Albumin/Creatinine Ratio, Urine 9 0-30 ug/m g Microalbumin, Urine, Random 2.1 Creatinine, Urine 242.5 REASON FOR VISIT fasting labs only Medications Medication SIG (Take, Route, Frequency, Duration) Notes Start Date End Date Status Benzonatate 200 MG 1 capsule as needed Orally Three times a day 01/13/2025 Active Gabapentin 300 MG 1 capsule Orally Two times a day; Duration: 90 days 04/23/2024 Active Valsartan 160 MG 1 tablet Orally Once a day; Duration: 90 days Active Promethazine-DM 6.25-15 MG/5ML 5 mL as needed Orally every 6 hrs 01/13/2025 Active metFORMIN HCl 1000 MG 1 tablet with a me al Orally Two times a day; Duration: 90 days Active Levothyroxine Sodium 125 MCG 2 tablets i n the morning on an empty stomach Orally Once a day; Duration: 30 days 01/13/2025 Active Rosuvastatin Calcium 20 MG 1 tablet Oral ly Once a day; Duration: 90 days Active Encounters Encounter Location Date Provider Diagnosis [facility] [address] [facility] [address] [place], [place] [id number] 02/26/2025 Duane Cruz Type 2 diabetes dina itus without complication, without long-term current use of insulin E11.9 ; Hypothyroidism (acquired) E03.9 ; Essential hypertension I10 and Pure hypercholesterolemia E78.00 Assessments Encounter Date Diagnosis (ICD Code) Assessment Notes Treatment Notes Treatment Clinical Notes Section Notes 02/26/2025 Type 2 diabetes dina itus without complication, without long-term current use of insulin (ICD-10 - E11.9) 02/26/2025 Hypothyroidism (acquired) (ICD-10 - E03.9) 02/26/2025 Essential hypertensi on (ICD-10 - I10) 02/26/2025 Pure hypercholesterolemia (ICD-10 - E78.00) Plan Of Treatment No Information Progress Notes * CASIE HANNONADOB:1960 (64 yo F)Acc No.[id number]:02/26/2025 Patient: HARI VIERA Provider: Juan Cruz M.D. :1960 A ge:64 Y S ex:Female Date:02/26/2025 Address:[place] [id number] Subjective: * Chief Complaints: * 1 . Fasting labs only. * Medical History: * Medications: T aking Gabapentin 300 MG Capsule 1 capsule Orally Two times a day , Taking Benzonatate 200 MG Capsule 1 capsule as needed Orally Three times a day , Taking Promethazine-DM 6.25-15 MG/5ML Syrup 5 mL as needed Orally every 6 hrs , Taking metFORMIN HCl 1000 MG Tablet 1 tablet with a meal Orally Two times a day , Taking Valsartan 160 MG Tablet 1 tablet Orally Once a day , Taking Rosuvastatin Calcium 20 MG Tablet 1 tablet Orally Once a day , Taking Levothyroxine Sodium 125 MCG Tablet 2 tablets in the morning on an empty stomach Orally Once a day , Medication List reviewed and reconciled with the patient Objective: * Vitals: Assessment: * Assessment: 1. T ype 2 diabetes mellitus without complication, without long-term current use of insulin - E11.9 (Primary) 2 . H ypothyroidism (acquired) - E03.9 3 . E ssential hypertension - I10 4 . P ure hypercholesterolemia - E78.00 ? Plan: * Treatment: Value Reference Range A lbumin/Creatinine Ratio, Urine 9 0-30 - ug /mg * C reatinine, Urine 242.5 - mg/dL * M icroalbumin, Urine, Random 2.1 - mg/dL * Venita Wilkerson 02/27/2025 10: 35:24 AM EDT > See phone encounter ?LAB: Glycohemoglobin A1c (in house) (Collection Date & Time - 02/26/2025)? 8.0* Value Reference Range g lycohemoglobin 8.0% 5 - 6.5 % * Bess Marcelo 02/26/2025 12:05: 24 PM EDT > Venita Wilkerson 02/27/2025 10:35:24 AM EDT > See phone encounter 2.?Hypothyroidism (acquired)?LAB: P-T4 Free (thyroxine) (Collection Date & Time - 02/26/2025 08:26 AM)? Normal* Value Reference Range T hyroxine Free (free T4) 0.90 0.86-1.76 - ng/d L * Venita Wilkerson 02/27/2025 10: 35:24 AM EDT > See phone encounter ?LAB: P-TSH (Collection Date & Time - 02/26/2025 08:26 AM)?<0.005* Value Reference Range T SH <0.005 L 0.43-5.25 - mU/L * Venita Wilkerson 02/27/2025 10: 35:24 AM EDT > See phone encounter 3.?Essential hypertension?LAB: P-Comprehensive Metabolic Panel (CMP) (Collection Date & Time - 02/26/2025 08:26 AM)?Glu 124* Value Reference Range A /G Ratio 1.4 1.1-2.5 - * A lbumin 4.1 3.5-5.3 - g/dL * A lkaline Phosphatase 68 35-121 - IU/L * A LT (SGPT) 24 <5-47 - IU/L * A ST (SGOT) 25 <5-40 - IU/L * B ilirubin, Total 0.6 <0.2-1.2 - mg/dL * B UN 9 8-23 - mg/dL * C alcium 10.0 8.6-10.4 - mg/dL * C hloride 108 97-108 - mmol/L * C O2 24 20-32 - mmol/L * C reatinine 1.00 0.50-1.00 - mg/dL * G lucose 124 H 65-99 - mg/dL * P otassium 4.1 3.5-5.3 - mmol/L * S odium 143 135-145 - mmol/L * P rotein 7.1 6.0-8.3 - g/dL * e GFR by Creatinine 63 >59 - mL/min/1.73m2 * Venita Wilkerson 02/27/2025 10: 35:24 AM EDT > See phone encounter 4.?Pure hypercholesterolemia?LAB: P-Lipid Panel (Collection Date & Time - 02/26/2025 08:26 AM)?HDL 39, Chol/HDL 4.56, Non-HDL 139* Value Reference Range C holesterol / HDL Ratio 4.56 H 0.00-4.44 - Ratio * C holesterol 178 <200 - mg/dL * H DL Cholesterol 39 L >39 - mg/dL * L DL Cholesterol (Calculation) 113 <130 - mg/d L * L DL/HDL Ratio 2.9 <3.3 - Ratio * N on-HDL Cholesterol 139 H <130 - mg/dL * T riglycerides 129 <150 - mg/dL * Venita Wilkerson 02/27/2025 10: 35:24 AM EDT > See phone encounter * Procedure Codes: 8 3036 GLYCATED HEMOGLOBIN TEST, Modifiers: QW , 3052F HG A1C>EQUAL 8.0%<EQUAL 9.0% * Images: Billing Information: * Visit Code: * Procedure Codes: 80082 GLYCATED HEMOGLOBIN TEST. Modifiers: QW 3052F HG A1C>EQUAL 8.0%<EQUAL 9.0%. * Electronic signature of Breana Cruz MD on 06/19/2025 at 10:12 AM EDT Sign off status: Pending * Provider: Juan Cruz M.D. Date: 0 02/26/2025 Generated for Elizabeth pickett/Lorenzo/Ezequiel on: 1 10:12 AM EDT
--- OUTSIDE RECORDS SUMMARY | 2025-05-29 06:30 | XMS_ITS ---
[facility] Organization [facility] Address [address] [id number] Care Team Providers Care Van Cdl Driver Name Role Phone AnthonyRomeoDuane Primary Care Provider Gilbert Sunshine Unavailable [phone] Allergies No Known Allergies Results Component Value Reference Range Notes Glucose (In-House) Reviewed date:05/29/2025 11:07:13 AM Interpretation: Performing Lab: Notes/Report: blood glucose 157 74 - 106 mg/dL Glycohemoglobin A1c (in hous e) Reviewed date:06/01/2025 11:33:29 AM Interpretation:6.7% Performing Lab: Notes/Report: 6.7% glycohemoglobin 6.7% 5 - 6.5 % P-T4 Free (thyroxine) Reviewed date:06/01/2025 11:33:29 AM Interpretation:Normal Performing Lab: Notes/Report: Test performed by [facility] [address] [place], [place] [address] [place] , [address], [place] [address] Linden Weller MD, Content Writer CLIA: [id number] Thyroxine Free (free T4) 0.93 0.86-1.76 ng/dL P-Total T3 Reviewed date:06/01/2025 11:33:29 AM Interpretation:0.7 Performing Lab: Notes/Report: Test performed by [facility] [address] [place], [place] [address] [address], [address], [place] [address] Linden Weller MD, Content Writer CLIA: [id number] Total T3 0.70 0.80-2.00 ng/mL P-TSH Reviewed date:06/01/2025 11:33:29 AM Interpretation:<0.005 Performing Lab: Notes/Report: Test performed by [email or web address] [address] [place] [address] , [address], [place] [address] Linden Weller MD, Content Writer CLIA: [id number] TSH <0.005 0.43-5.25 mU/L REASON FOR VISIT 3 Month Check Up Medications Medication SIG (Take, Route, Frequency, Duration) Notes Start Date End Date Status Valsartan 160 MG 1 tablet Orally Once a day; Duration: 90 days Active Rosuvastatin Calcium 20 MG 1 tablet Oral ly Once a day; Duration: 90 days Active metFORMIN HCl 1000 MG 1 tablet with a me al Orally Two times a day Active Levothyroxine Sodium 125 MCG TAKE 2 TABL ETS BY MOUTH EVERY MORNING ON AN EMPTY STOMACH Active Gabapentin 300 MG 1 capsule Orally Two times a day; Duration: 90 days 04/23/2024 Active Social History Tobacco Use: Social History Observation Description Date Details (start date - stop date) Never Smoker NA - NA CURRENT TOBACCO USE: Question Answer Notes Are you a: never smoker Vital Signs Weight 152.6 lbs 05/29/2025 Blood pressure systolic 130 mm Hg 05/29/20 25 Blood pressure diastolic 80 mm Hg 025 Heart Rate 98 /min 05/29/2025 Height 64.5 in 05/29/2025 BMI 25.79 kg/m2 05/29/2025 Encounters Encounter Location Date Provider Diagnosis A[facility] [facility] [address] [facility] [address] [place], [place] [id number] 05/29/2025 Duane Cruz Type 2 diabetes dina itus with complication, without long-term current use of insulin E11.8 ; Hypothyroidism (acquired) E03.9 ; Breast cancer screening by mammogram Z12.31 ; Osteoporosis screening Z13.820 and BMI 25.0-25.9,adult Z68.25 Assessments Encounter Date Diagnosis (ICD Code) Assessment Notes Treatment Notes Treatment Clinical Notes Section Notes 05/29/2025 Type 2 diabetes mellitus with complication, without long-term current use of insulin (ICD-10 - E11.8) 05/29/2025 Hypothyroidism (acquired) (ICD-10 - E03.9) 05/29/2025 Breast cancer screening by mammogram (ICD-10 - Z12.31) 05/29/2025 Osteoporosis screening (ICD-10 - Z13.820) 05/29/2025 BMI 25.0-25.9,adult (ICD-10 - Z68.25) Plan Of Treatment Medication Medication Name Sig Start Date Stop Date Notes metFORMIN HCl 1000 MG 1 tablet with a me al Orally Two times a day Levothyroxine Sodium 125 MCG TAKE 2 TABL ETS BY MOUTH EVERY MORNING ON AN EMPTY STOMACH Pending Test Test Name Order Date DEXA Hip and Spine 05/29/2025 Mammogram 05/29/2025 Next Appt Details Follow Up: 6 Months, Reason: Progress Notes * MICHAELA HANNONADELAIDAADOB:1960 (64 yo F)Acc No.[id number]:05/29/2025 Progress Notes Patient: HARI VIERA Provider: Juan Cruz M.D. :1960 A ge:64 Y S ex:Female Date:05/29/2025 Address:[place] [address], [place] [id number] Subjective: * Chief Complaints: * 1 . 3 Month Check Up. * HPI: E ndocrinology: 64 year old female presents with c/o Recent Blood Sugars P t here for 3 mo checkup on DM 2. Pt states she is no longer taking Pioglitazone due to it making her really dizzy . * Medical History: T ype 2 Diabetes, Hypertension, Hypercholestrolemia, Declared disabled in 2018 after right shoulder work injury, Left renal mass, see chest CT scan from 2021, Hypothyroidism. * Surgical History: T ubal Ligation , Cholecystectomy , Shoulder . * Hospitalization/Major Diagno stic Procedure: B ack Pain- [facility] ER 02/19/2021, Back Pain- [facility] ER 02/27/2021. * Family History: M other: [...] Diabetes. * Social History: C URRENT TOBACCO USE: No A re you a: n ever smoker. [...] , Taking Levothyroxine Sodium 125 MCG Tablet TAKE 2 TABLETS BY MOUTH EVERY MORNING ON AN EMPTY STOMACH , Discontinued Benzonatate 200 MG Capsule 1 capsule as needed Orally Three times a day , Discontinued Promethazine-DM 6.25-15 MG/5ML Syrup 5 mL as needed Orally every 6 hrs , Discontinued Pioglitazone HCl 30 MG Tablet 1 tablet Orally Once a day , Medication List reviewed and reconciled with the patient * Allergies: N .K.D.A. Objective: * Vitals: W t: 152.6, Temp: 98.1, BP: 130/80, HR: 98, Nurse: zach, Ht: 64.5, BMI:25.79. * Examination: G eneral Examination: General Appearance: N AD. H eart: R SR. L ungs:?clear to auscultation. P eripheral pulses: n ormal (2+) bilaterally. E xtremities:?no leg edema. Assessment: * Assessment: 1. T ype 2 diabetes mellitus with complication, without long-term current use of insulin - E11.8 (Primary) 2 . H ypothyroidism (acquired) - E03.9 3 . B reast cancer screening by mammogram - Z12.31 4 . O steoporosis screening - Z13.820 5. B FL 25.0-25.9,adult - Z68.25 Plan: * Treatment: Value Reference Range b lood glucose 157 74 - 106 mg/dL * Bess Marcelo 05/29/2025 11:06 :49 AM EDT > Provider reviewed results while patient in office. ?LAB: Glycohemoglobin A1c (in house) (Collection Date & Time - 05/29/2025)? 6.7%* Value Reference Range g lycohemoglobin 6.7% 5 - 6.5 % * Bess Marcelo 05/29/2025 11:07 :14 AM EDT > Provider reviewed results while patient in office. Venita Wilkerson 06/01/2025 11:33:21 AM EDT > See phone encounter 2.?Hypothyroidism (acquired)? Continue Levothyroxine Sodium Tablet, 125 MCG, TAKE 2 TABLETS BY MOUTH EVERY MORNING ON AN EMPTY STOMACH.?LAB: P-T4 Free (thyroxine) (Collection Date & Time - 05/29/2025 09:40 AM)? Normal* Value Reference Range T hyroxine Free (free T4) 0.93 0.86-1.76 - ng/d L * Venita Wilkerson 06/01/2025 11 :33:21 AM EDT > See phone encounter ?LAB: P-Total T3 (Collection Date & Time - 05/29/2025 09:40 AM)?0.7* Value Reference Range T otal T3 0.70 L 0.80-2.00 - ng/mL * Venita Wilkerson 06/01/2025 11 :33:21 AM EDT > See phone encounter ?LAB: P-TSH (Collection Date & Time - 05/29/2025 09:40 AM)?<0.005* Value Reference Range T SH <0.005 L 0.43-5.25 - mU/L * Venita Wilkerson 06/01/2025 11 :33:21 AM EDT > See phone encounter 3.?Breast cancer screening by mammogram?Imaging: Mammogram* Sherrie Hannon 05/29/2025 11: 43:51 AM EDT > faxed to [facility] Scheduling 4.?Osteoporosis screening?Imaging: DEXA Hip and Spine* Sherrie Hannon 05/29/2025 11: 43:41 AM EDT > faxed to [facility] Scheduling * Procedure Codes: G 2211 Complex e/[place], [address] GLUCOSE TEST, 95488 GLYCATED HEMOGLOBIN TEST, Modifiers: QW , 3044F HG A1C LEVEL LT 7.0%, G8420 BMI<30 AND >=22 CALC & DOCU, G8783 BP SCR PRFRM RCMDD DEFIND SCR INTVL, G8752 MOST RECENT SYSTOLIC BP < 140MM HG, G8754 MOST RECENT DIASTOLIC BP < 90MM HG, 3075F SYST BP GE 130 - 139MM HG, 3079F DIAST BP 80-89 MM HG * Follow Up: 6 Months * Images: Billing Information: * Visit Code: 16484 Office Visit, Est Pt., Level 4. * Procedure Codes: G2211 Complex e/[place]. [address] GLUCOSE TEST. 38198 GLYCATED HEMOGLOBIN TEST. Modifiers: QW 3044F HG A1C LEVEL LT 7.0%. G8420 BMI<30 AND >=22 CALC & DOCU. G8783 BP SCR PRFRM RCMDD DEFIND SCR INTVL. G8752 MOST RECENT SYSTOLIC BP < 140MM HG. G8754 MOST RECENT DIASTOLIC BP < 90MM HG. 3075F SYST BP GE 130 - 139MM HG. 3079F DIAST BP 80-89 MM HG. * Electronic signature of Breana Cruz MD on 06/19/2025 at 10:11 AM EDT Sign off status: Pending * Provider: Juan Cruz M.D. Date: Generated for Elizabeth pickett/Lorenzo/Kristineransmitting on: 10:11 AM EDT History and Physical Notes * HPI (History of Present Illness) Category Sub-Category Detail Notes Category Not es Endocrinology Recent Blood Sugars Pt here for 3 mo checkup on DM 2. Pt states she is no longer taking Pioglitazone due to it making her really dizzy Examination Category Sub-Category Detail Notes Category Not es General Examination Heart: RSR Lungs: clear to auscultatio n Extremities: no leg edema General Appearance: NAD Peripheral pulses: normal (2+) bilatera lly
--- NOTE | 2025-06-19 10:11 | MM_ITS ---
PROCEDURE INFORMATION: Exam: MG Bilateral Screening 3D Mammography Exam date and time: 06/19/2025 10:21 AM Age: 64 years old Clinical indication: Screening examination. Her mother, maternal grandmother, maternal aunt, and maternal cousin had breast cancer. TECHNIQUE: Imaging protocol: Bilateral Screening tomosynthesis and 2D mammography including computer-aided detection (CAD) when performed. COMPARISON: 1. MG MM DIG SCREENING MAMM BI W/CAD 03/12/2023 9:26 AM 2. MG MM DIG SCREENING MAMM BI W/CAD 02/11/2021 9:49 AM 3. MG SCBI MM Dig screening mamm BI w/CAD 12/02/2018 2:39 PM 4. MG DMSB DIG MAMM-SCREEN MOIRA 04/18/2016 8:26 AM FINDINGS: MAMMOGRAPHY: Breast composition: There are scattered areas of fibroglandular density. Mass: None. Architectural distortion: None. Calcifications: No suspicious calcifications. Asymmetric density: None. Skin thickening: None. Axillary adenopathy: None. IMPRESSION: No mammographic evidence of malignancy. Annual screening is recommended unless otherwise clinically indicated. ASSESSMENT: BI-RADS Category 1: Negative.
--- OUTSIDE RECORDS SUMMARY | 2025-06-19 10:11 | XMS_ITS | Patient Health Record ---
Author Organization [facility] Address [address] [facility] [address] [place] [id number] Care Team Providers Care Crusher Loader Operator Name Role Phone Duane Cruz Primary Care Provider Gilbert Sunshine Unavailable [phone] Allergies No Known Allergies Results Component Value Reference Range Notes P-TSH Reviewed date:06/01/2025 11:33:29 AM Interpretation:<0.005 Performing Lab: Notes/Report: Test performed by [facility] [address] [place] [address] , [address], [place] [address] Linden Weller MD, Carding Utility Tender CLIA: [id number] TSH <0.005 0.43-5.25 mU/L P-Total T3 Reviewed date:06/01/2025 11:33:29 AM Interpretation:0.7 Performing Lab: Notes/Report: Test performed by [facility] [address] [place] [address] , [address], [place] [address] Linden Weller MD, Carding Utility Tender CLIA: [id number] Total T3 0.70 0.80-2.00 ng/mL P-T4 Free (thyroxine) Reviewed date:06/01/2025 11:33:29 AM Interpretation:Normal Performing Lab: Notes/Report: Test performed by [facility] [address] [place] [address] , [address], [place] [address] Linden Weller MD, Carding Utility Tender CLIA: [id number] Thyroxine Free (free T4) 0.93 0.86-1.76 ng/dL Glycohemoglobin A1c (in hous e) Reviewed date:06/01/2025 11:33:29 AM Interpretation:6.7% Performing Lab: Notes/Report: 6.7% glycohemoglobin 6.7% 5 - 6.5 % Glucose (In-House) Reviewed date:05/29/2025 11:07:13 AM Interpretation: Performing Lab: Notes/Report: blood glucose 157 74 - 106 mg/dL P-Microalbumin/Creatinine, R andom Urine Sample Reviewed date:02/27/2025 10:35:34 AM Interpretation: Normal Performing Lab: Notes/Report: Test performed by [facility] [address] , [place] [address] Linden Weller MD, Carding Utility Tender CLIA: [id number] Albumin/Creatinine Ratio, Urine 9 0-30 ug/m g Microalbumin, Urine, Random 2.1 Creatinine, Urine 242.5 P-TSH Reviewed date:02/27/2025 10:35:34 AM Interpretation:<0.005 Performing Lab: Notes/Report: Test performed by [facility] [address] , [address], [place] [address] Linden Weller MD, Carding Utility Tender CLIA: [id number] TSH <0.005 0.43-5.25 mU/L P-Lipid Panel Reviewed date:02/27/2025 10:35:34 AM Interpretation:HDL 39, Chol/HDL 4.56, Non-HDL 139 Performing Lab: Notes/Report: Test performed by [facility] [address] , [address], [place] [address] Linden Weller MD, Carding Utility Tender CLIA: [id number] Cholesterol 178 <200 mg/dL Triglycerides 129 <150 [...] Results: 113 Units: mg/dL % Change: -7% P-T4 Free (thyroxine) Reviewed date:02/27/2025 10:35:34 AM Interpretation: Normal Performing Lab: Notes/Report: Test performed by [facility] [place] [address] Linden Weller MD, Carding Utility Tender CLIA: [id number] Thyroxine Free (free T4) 0.90 0.86-1.76 ng/dL P-Comprehensive Metabolic Pa abmiael (CMP) Reviewed date:02/27/2025 10:35:34 AM Interpretation:Glu 124 Performing Lab: Notes/Report: Test performed by [facility] [address] [place], [place] [address] [place] [address], [place] [address] Linden Weller MD, Carding Utility Tender CLIA: [id number] Sodium 143 135-145 mmol/L Potassium 4.1 3.5-5.3 [...] 0.6 <0.2-1.2 mg/dL A/G Ratio 1.4 1.1-2.5 Glycohemoglobin A1c (in hous e) Reviewed date:02/27/2025 10:35:34 AM Interpretation:8.0 Performing Lab: Notes/Report: 8.0 glycohemoglobin 8.0% 5 - 6.5 % CBC Fingerstick (in house) Reviewed date:01/13/2025 02:30:08 [...] - 38 plat 202 100 - 400 P-TSH Reviewed date:01/09/2025 09:23:38 AM Interpretation:0.02 Performing Lab: Notes/Report: Test performed by [facility] [address] [place] [address] , [address], [place] [address] Linden Weller MD, Carding Utility Tender CLIA: [id number] TSH 0.02 0.43-5.25 mU/L P-T4 Free (thyroxine) Reviewed date:01/09/2025 09:23:38 AM Interpretation:0.53 Performing Lab: Notes/Report: Test performed by [facility] [address] [facility] , [address], [place] [address] Linden Weller MD, Carding Utility Tender CLIA: [id number] Thyroxine Free (free T4) 0.53 0.86-1.76 ng/dL Reason For Referral No Information Medications Medication SIG (Take, Route, Frequency, Duration) Notes Start Date End Date Status Valsartan 160 MG 1 tablet Orally Once a day; Duration: 90 days Active Rosuvastatin Calcium 20 MG 1 tablet Oral ly Once a day; Duration: 90 days Active Gabapentin 300 MG 1 capsule Orally Two times a day; Duration: 90 days 04/23/2024 Active metFORMIN HCl 1000 MG 1 tablet with a me al Orally Two times a day Active Levothyroxine Sodium 150 MCG 1 tablet in the morning on an empty stomach Orally Once a day; Duration: 90 days Active Immunizations Vaccine Route Administration Date Status Comme nts COVID 19 Jessica Unknown 03/23/2021 Administered COVID 19 Jessica Unknown 07/20/2021 Administered Social History Tobacco Use: Social History Observation Description Date Details (start date - stop date) Never Smoker NA - NA CURRENT TOBACCO USE: Question Answer Notes Are you a: never smoker Problems Problem Type SNOMED Code ICD Code Onset Dates Problem Status W/U Status Risk Notes Problem Hypothyroidism (50952899) Hypothyroidism (acquired) (E03.9) Active confirmed Problem Essential hypertension (54156293) Essential hypertension (I10) Active confirmed Problem Hypertriglyceridemia (189244613) Hypertriglyceridemia (E78.1) Active confirmed Problem Arthropathy of lumba r facet joint (381099818) Lumbar facet arthropathy (M47.816) Active confirmed Problem Mixed hyperlipidemia (360351824) Mixed hyperlipidemia (E78.2) Active confirmed Problem Sciatica (12244457) Lumbago with sciatica, left side (M54.42) Active confirmed Problem Degeneration of lumbar intervertebral disc (96901083) Lumbar degenerative disc disease (M51.36) Active confirmed Problem Sciatica (65602747) Sciatica of right side (M54.31) Active confirmed Problem Renal insufficiency (217025304) Renal insufficiency (N28.9) Active confirmed Problem Pain in right leg (746262458) Right leg pain (M79.604) Active confirmed Problem Sciatica (28510050) Acute left-s ided low back pain with left-sided sciatica (M54.42) Active confirmed Problem Type II diabetes mellitus without complication (709837245) Type 2 diabetes mellitus without complication, without long-term current use of insulin (E11.9) Active confirmed Problem Disorder due to type 2 diabetes mellitus (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) Type 2 diabetes mellitus with complication, without long-term current use of insulin (E11.8) Active confirmed Problem Pure hypercholesterolemia (125986144) Pure hypercholesterolemia (E78.00) Active confirmed Problem Fibrocystic breast changes (88591576) Fibrocystic breast disease (FCBD), unspecified laterality (N60.19) Active confirmed Problem Type 2 diabetes mellitus with other specified complication, unspecified whether fci insulin use (E11.69) Active confirmed Vital Signs Heart Rate 98 /min 05/29/2025 Blood pressure diastolic 80 mm Hg 05/29/2025 Height 64.5 in 05/29/2025 Blood pressure systolic 130 mm Hg 05/29/2025 Weight 152.6 lbs 05/29/2025 BMI 25.79 kg/m2 05/29/2025 Encounters Encounter Location Date Provider Diagnosis [facility] [address] [place], [place] [id number] 01/08/2025 Duane Hartsel Hypothyroidism (acqu ired) E03.9 [facility] [address] [place], [place] [id number] 01/13/2025 Duane Hartsel Acute URI J06.9 ; Ty pe 2 diabetes mellitus without complication, without long-term current use of insulin E11.9 ; Hypothyroidism (acquired) E03.9 ; Essential hypertension I10 ; Pure hypercholesterolemia E78.00 ; Type 2 diabetes mellitus with complication, without long-term current use of insulin E11.8 ; Type 2 diabetes mellitus with other specified complication, unspecified whether fci insulin use E11.69 and BMI 29.0-29.9,adult Z68.29 [facility] [address] [place], [place] [id number] 02/26/2025 Duane Hartsel Type 2 diabetes dina itus without complication, without long-term current use of insulin E11.9 ; Hypothyroidism (acquired) E03.9 ; Essential hypertension I10 and Pure hypercholesterolemia E78.00 [facility] [address] [place], [place] [id number] 05/29/2025 Duane Hartsel Type 2 diabetes dina itus with complication, without long-term current use of insulin E11.8 ; Hypothyroidism (acquired) E03.9 ; Breast cancer screening by mammogram Z12.31 ; Osteoporosis screening Z13.820 and BMI 25.0-25.9,adult Z68.25 [facility] [address] [place], [place] [id number] 06/15/2025 Duane Hartsel [facility] [address] [place], [place] [id number] 01/09/2025 Duane Hartsel [facility] [address] [place], [place] [id number] 01/14/2025 Duane Hartsel [facility] [address] [place] [id number] 02/27/2025 Duane Hartsel [facility] [address] [place], [place] [id number] 06/01/2025 Duane Hartsel Hypothyroidism (acqu ired) E03.9 Assessments Encounter Date Diagnosis (ICD Code) Assessment Notes Treatment Notes Treatment Clinical Notes Section Notes 01/08/2025 Hypothyroidism (acquired) (ICD-10 - E03.9) 01/13/2025 Acute URI (ICD-10 - J06.9) 01/13/2025 Type 2 diabetes dina itus without complication, without long-term current use of insulin (ICD-10 - E11.9) 02/26/2025 Type 2 diabetes dina itus without complication, without long-term current use of insulin (ICD-10 - E11.9) 05/29/2025 Hypothyroidism (acquired) (ICD-10 - E03.9) 05/29/2025 Type 2 diabetes dina itus with complication, without long-term current use of insulin (ICD-10 - E11.8) 06/01/2025 Hypothyroidism (acquired) (ICD-10 - E03.9) 05/29/2025 Breast cancer screen ing by mammogram (ICD-10 - Z12.31) 02/26/2025 Hypothyroidism (acquired) (ICD-10 - E03.9) 01/13/2025 Hypothyroidism (acquired) (ICD-10 - E03.9) 01/13/2025 Essential hypertensi on (ICD-10 - I10) 02/26/2025 Essential hypertensi on (ICD-10 - I10) 05/29/2025 Osteoporosis screeni ng (ICD-10 - Z13.820) 01/13/2025 Pure hypercholesterolemia (ICD-10 - E78.00) 05/29/2025 BMI 25.0-25.9,adult (ICD-10 - Z68.25) 02/26/2025 Pure hypercholesterolemia (ICD-10 - E78.00) 01/13/2025 Type 2 diabetes dina itus with complication, without long-term current use of insulin (ICD-10 - E11.8) 01/13/2025 Type 2 diabetes dina itus with other specified complication, unspecified whether fci insulin use (ICD-10 - E11.69) 01/13/2025 BMI 29.0-29.9,adult (ICD-10 - Z68.29) Plan Of Treatment Pending Test Test Name Order Date DEXA Hip and Spine 05/29/2025 DEXA Hip and Spine 06/01/2025 Mammogram 05/29/2025 Insurance Providers Payer Name Payer Address Payer Phone Subscriber Number Group Number Insured Name Patient Relationship to Insured Coverage Start Date Coverage End Date MEDICARE PART B [address] [address] [place] [id number] HARI HANNON Self - patient is the insured Medical (General) History Medical History History ICD Code Type 2 Diabetes Hypertension Hypercholestrolemia Declared disabled in 2018 after right sh [place] work injury Left renal mass, see chest CT scan from 2021 Hypothyroidism Surgical History Surgery Date(Month/Year) Tubal Ligation Cholecystectomy Shoulder Hospitalization History Reason Date(Month/Year) Back Pain- [facility] 02/27/2021 Back Pain- [facility] 02/19/2021
== END 2025-06-19 23:59 | disposition home or self-care (01) ==
LOC: RAD 10:08
PROVIDERS: PCP Family Medicine; Visit Provider Family Medicine
DX: Z12.31 Encounter for screening mammogram for malignant neoplasm of breast (principal); R92.323 Mammographic fibroglandular density, bilateral breasts; Z80.3 Family history of malignant neoplasm of breast
CPT/HCPCS: 77063; 77067